=== PATIENT | female | born 1975 | race Caucasian/White ===

== ENCOUNTER 2017-03-25 18:21 | Emergency (ER) | payer OTHER ==
[2017-03-25] MEDS ORDERED: SODIUM CHLORIDE 0.9% 1,000 ML IV STA (18:43)
[2017-03-25] MEDS ORDERED: ACETAMINOPHEN TAB 500 MG TAB PO STA (18:43)
[2017-03-25] MEDS ORDERED: KETOROLAC 30 MG/ML 1 ML VIAL IVP STA ×2 (18:43→20:40)
[2017-03-25] MEDS ORDERED: ONDANSETRON 4 MG/2 ML VIAL IVP STA ×2 (18:43→20:00)
[2017-03-25] MEDS ORDERED: diphenhydrAMINE 50 MG/ML 1 ML VIAL IVP STA (18:43)
[2017-03-25] MEDS ORDERED: ORPHENADRINE 30 MG/ML 2 ML VIAL IVP STA (18:44)
[2017-03-25 18:56] LABS: Basophils % (A) 0 %; CHCM 32.2; Eosinophils % (A) 0 %; HCT 36.3 % (34.0-46.0); HDW 2.44; HGB 11.8 gm/dL (11.4-16.0); Luc # (Auto) 0.12; Luc % (Auto) 3; Lymphocytes # (A) 1.3 k/uL (1.0-4.8); Lymphocytes % (A) 31 %; MCH 31.3 pg (25.0-35.0); MCHC 32.4 g/dL (31.0-37.0); MCV 96.7 fL (80.0-100.0); Mean Platelet Volume 6.9; Monocytes # (A) 0.3 k/uL (0-1.0); Monocytes % (A) 6 %; Neutrophils # (A) 2.4 k/uL (1.3-7.7); Neutrophils % (A) 60 %; RBC 3.76 m/uL (3.80-5.40); RDW 12.3 % (11.5-15.5)
[2017-03-25 19:06] LABS: Anion Gap 9 mmol/L; Blood Urea Nitrogen 12 mg/dL (7-17); Calcium 8.9 mg/dL (8.4-10.2); Carbon Dioxide 26 mmol/L (22-30); Chloride 105 mmol/L (98-107); Glucose 94 mg/dL (74-99); Non-African American GFR(MDRD) >60 (>60 ml/min/1.73 sqM); Potassium 3.8 mmol/L (3.5-5.1); Sodium 140 mmol/L (137-145)
--- NOTE | 2017-03-25 19:12 | ED ---
Headache HPI - General Source: RN notes reviewed, old records reviewed Mode of arrival: EMS Limitations: no limitations <Ana Marmolejo - Last Filed: 03/25/17 20:06> <Eliseo Olivera - Last Filed: 03/25/17 20:58> <Bipin Mckeon - Last Filed: 04/05/17 23:02> - General Chief Complaint: Headache Stated Complaint: migraine Time Seen by Provider: 03/25/17 18:26 - History of Present Illness Initial Comments: This is a 41-year-old female presents emergency Department chief complaining of severe migraine-like headache for the past 2 days. She reports she's had history of migraines. She reports that this is the worst migraine ever had. Patient states that she had a root canal 3 to get days ago and that seems to when she noticed her migraine started. She denies any pain or swelling around the teeth or gums. She reports that she was started on azithromycin for dental procedure. Patient states she's had no fever or chills. She reports she also has some pain and stiffness in her neck. She states that she was seen in a different emergency department a few weeks ago for migraine-like headache. ( Ana Marmolejo) - Related Data Home Medications Medication Instructions Recorded Confirmed clonazePAM [KlonoPIN] 2 mg PO TID 09/03/14 03/25/17 Lurasidone HCl [Latuda] 60 mg PO W/SUPPER 03/16/16 03/25/17 Metoprolol Tartrate 25 mg PO BID 03/16/16 03/25/17 PARoxetine HCL [Paxil] 60 mg PO DAILY 03/16/16 03/25/17 Cyclobenzaprine [Flexeril] 10 mg PO BID PRN 03/25/17 03/25/17 Ranitidine HCl 150 mg PO BID 03/25/17 03/25/17 traZODone HCL 300 mg PO HS 03/25/17 03/25/17 Allergies Allergy/AdvReac Type Severity Reaction Status Date / Time glycopyrrolate [From Onelia] AdvReac PARANOIA Verified 03/25/17 18:58 metoclopramide HCl AdvReac PARANOIA Verified 03/25/17 18:58 [From Reglan] morphine AdvReac Chest Pain Verified 03/25/17 18:58 prochlorperazine edisylate AdvReac Nausea & Verified 03/25/17 18:58 [From Compazine] Vomiting prochlorperazine maleate AdvReac Nausea & Verified 03/25/17 18:58 [From Compazine] Vomiting Review of Systems ROS Other: All systems not noted in ROS Statement are negative. <Ana Marmolejo - Last Filed: 03/25/17 20:06> ROS Other: All systems not noted in ROS Statement are negative. <Eliseo Olivera - Last Filed: 03/25/17 20:58> ROS Other: All systems not noted in ROS Statement are negative. <Bipin Mckeon - Last Filed: 04/05/17 23:02> ROS Statement: Those systems with pertinent positive or pertinent negative responses have been documented in the HPI. Past Medical History Past Medical History: Fibromyalgia, GERD/Reflux, Osteoarthritis (OA), Supraventricular Tachycardia (SVT), Syncope Additional Past Medical History / Comment(s): PROTEIN S DEFICIENCY; STATES, HX "BLOOD CLOT IN COLON IN 1999." HYPOGLYCEMIA. GETS EDEMA IN FEET. HX KIDNEY STONES. HX OF ULCER. ABD PAIN RADIATING TO BACK, PELVIC PAIN. HX bulging disks with procedures; Anorexia Nervosa, HX MIGRAINES History of Any Multi-Drug Resistant Organisms: None Reported Past Surgical History: Cholecystectomy, Hysterectomy Additional Past Surgical History / Comment(s): LAPAROSCOPY. URETERAL STENTS D/ T KIDNEY STONES. NOW REMOVED, FREDI FUNDAPLICATION Past Anesthesia/Blood Transfusion Reactions: Motion Sickness, Postoperative Nausea & Vomiting (PONV) Additional Past Anesthesia/Blood Transfusion Reaction / Comment(s): REFUSES BLOOD PRODUCTS. Past Psychological History: Anxiety, Bipolar, Depression Smoking Status: Never smoker Past Alcohol Use History: None Reported Past Drug Use History: None Reported - Past Family History Father Family Medical History: Hyperlipidemia Additional Family Medical History / Comment(s): Mitral valve repair Mother Family Medical History: Cancer Additional Family Medical History / Comment(s): lupus <Ana Marmolejo - Last Filed: 03/25/17 20:06> General Exam Limitations: no limitations General appearance: alert, in no apparent distress Head exam: Present: atraumatic, normocephalic, normal inspection Eye exam: Present: normal appearance, PERRL, EOMI. Absent: scleral icterus, conjunctival injection, periorbital swelling ENT exam: Present: normal exam, mucous membranes moist Neck exam: Present: normal inspection. Absent: tenderness, meningismus, lymphadenopathy Respiratory exam: Present: normal lung sounds bilaterally. Absent: respiratory distress, wheezes, rales, rhonchi, stridor Cardiovascular Exam: Present: regular rate, normal rhythm, normal heart sounds. Absent: systolic murmur, diastolic murmur, rubs, gallop, clicks GI/Abdominal exam: Present: soft, normal bowel sounds. Absent: distended, tenderness, guarding, rebound, rigid Extremities exam: Present: normal inspection, full ROM, normal capillary refill. Absent: tenderness, pedal edema, joint swelling, calf tenderness Back exam: Present: normal inspection Neurological exam: Present: alert, oriented X3, CN II-XII intact Psychiatric exam: Present: normal affect, normal mood Skin exam: Present: warm, dry, intact, normal color. Absent: rash <Ana Marmolejo - Last Filed: 03/25/17 20:06> <Eliseo Olivera - Last Filed: 03/25/17 20:58> <Bipin Mckeon - Last Filed: 04/05/17 23:02> - General Exam Comments Initial Comments: 41-year-old female. No acute distress. (Ana Marmolejo) Course <Ana Marmolejo - Last Filed: 03/25/17 20:06> <Eliseo Olivera - Last Filed: 03/25/17 20:58> <Bipin Mckeon - Last Filed: 04/05/17 23:02> Vital Signs 03/25/17 03/25/17 18:25 22:49 Temperature 98.6 F 98.2 F Pulse Rate 75 84 Respiratory 20 18 Rate Blood Pressure 110/59 95/57 O2 Sat by Pulse 98 94 L Oximetry - Reevaluation(s) Reevaluation #1: 03/25/17 19:23 Patient was reevaluated. She reports that her headache did not diminished at all. She reports it feels still a 10 out of [address] was ordered. ( Ana Marmolejo) Reevaluation #2: 03/25/17 20:52 I did evaluate the patient patient CT is negative. She did get some improvement in her headache from a 10/10 to an 8/10. (Eliseo Olivera) Reevaluation #3: 03/25/17 20:58 The patient's care will be endorsed to Dr. Mckeon at our shift change. He'll make the final disposition. (Eliseo Olivera) Medical Decision Making - Lab Data Result diagrams: 03/25/17 18:30 03/25/17 18:30 <Ana Marmolejo - Last Filed: 03/25/17 20:06> - Lab Data Result diagrams: 03/25/17 18:30 03/25/17 18:30 <Eliseo Olivera - Last Filed: 03/25/17 20:58> - Lab Data Result diagrams: 03/25/17 18:30 03/25/17 18:30 <Bipin Mckeon - Last Filed: 04/05/17 23:02> - Medical Decision Making This is a 41-year-old female presents emergency Department chief complaining of severe migraine-like headache for the past 2 days. She reports she's had history of migraines. She reports that this is the worst migraine ever had. Patient states that she had a root canal 3 to get days ago and that seems to when she noticed her migraine started. Patient's dentition appears to be normal. Nose and swelling or bleeding noted. No neurological deficits noticed. Patient is given IV fluids, Toradol, Norflex, Decadron, Zofran and Benadryl. Patient was reevaluated after receiving these and states that her headache was not any better. CT brain with and without contrast is ordered. Patient case was discussed with Dr. Olivera. He will take the patient and approximately 8 PM. (Ana Marmolejo) The patient had improvement following medication and discharged with instructions to return should symptoms recur if there is any worsening. (Bipin Mckeon) - Lab Data Lab Results 03/25/17 03/25/17 Range/Units 18:30 18:30 WBC 4.0 (3.8-10.6) k/uL RBC 3.76 L (3.80-5.40) m/uL Hgb 11.8 (11.4-16.0) gm/dL Hct 36.3 (34.0-46.0) % MCV 96.7 (80.0-100.0) fL MCH 31.3 (25.0-35.0) pg MCHC 32.4 (31.0-37.0) g/dL RDW 12.3 (11.5-15.5) % Plt Count 189 (150-450) k/uL Neutrophils % 60 % Lymphocytes % 31 % Monocytes % 6 % Eosinophils % 0 % Basophils % 0 % Neutrophils # 2.4 (1.3-7.7) k/uL Lymphocytes # 1.3 (1.0-4.8) k/uL Monocytes # 0.3 (0-1.0) k/uL Eosinophils # 0.0 (0-0.7) k/uL Basophils # 0.0 (0-0.2) k/uL Sodium 140 (137-145) mmol/L Potassium 3.8 (3.5-5.1) mmol/L Chloride 105 (98-107) mmol/L Carbon Dioxide 26 (22-30) mmol/L Anion Gap 9 mmol/L BUN 12 (7-17) mg/dL Creatinine 0.80 (0.52-1.04) mg/dL Est GFR (MDRD) Af Amer >60 (>60 ml/min/1.73 sqM) Est GFR (MDRD) Non-Af >60 (>60 ml/min/1.73 sqM) Glucose 94 (74-99) mg/dL Calcium 8.9 (8.4-10.2) mg/dL Disposition <Ana Marmolejo - Last Filed: 03/25/17 20:06> <Eliseo Olivera - Last Filed: 03/25/17 20:58> <Bipin Mckeon - Last Filed: 04/05/17 23:02> Clinical Impression: Headache Disposition: HOME SELF-CARE Condition: Good Instructions: Acute Headache (ED) Referrals: Presley Ley MD [Primary Care Provider] - 1-2 days
[2017-03-25] MEDS ORDERED: RX INFO: IV CONTRAST WAS GIVEN 1 EACH MISC MISCELLANE PRN (19:24)
[2017-03-25] MEDS ORDERED: HYDROmorphone 1 MG/ML 1 ML SYRINGE IVP STA ×2 (19:51→20:40)
--- NOTE | 2017-03-25 20:18 | CT ---
EXAMINATION TYPE: CT brain without contrast DATE OF EXAM: 03/25/2017 COMPARISON: NONE HISTORY: Headache for [address] DLP: 1927.2 mGycm Automated Exposure Control for Dose Reduction was Utilized. TECHNIQUE: CT scan of the head is performed without IV contrast COMPARISON: June 04, 2016 FINDINGS: No acute hemorrhage or major vessel territorial infarct. There is no mass, mass effect, or midline shift. The ventricles and sulci are age-appropriate. The calvarium and paranasal sinuses are unremarkable. IMPRESSION: No acute intracranial abnormality is identified.
[2017-03-25] MEDS ORDERED: SODIUM CHLORIDE 0.9% 500 ML IV STA (20:40)
[2017-03-25] MEDS ORDERED: IPRATROPIUM-ALBUTEROL 3 ML NEB INHALATION STA (20:59)
[2017-03-25 22:50] VITALS: BP 95/57; PULSE 84; RESP 18; TEMP 98.2
== END 2017-03-25 23:09 | disposition home or self-care (01) ==
LOC: EC 18:21
DX: R51 Headache (principal); K21.9 Gastro-esophageal reflux disease without esophagitis; F41.9 Anxiety disorder, unspecified; F31.9 Bipolar disorder, unspecified; Z86.69 Personal history of other diseases of the nervous system and sense organs; Z88.5 Allergy status to narcotic agent; Z88.8 Allergy status to other drugs, medicaments and biological substances; Z79.899 Other long term (current) drug therapy
CPT/HCPCS: 99285 ×2; 96374 ×2; 96375 ×5; 96376 ×4; 96361 ×5; 36415; 80048; 85025; 70470; J1200; J2360; J2405; J1885; J1170; Q9967

== ENCOUNTER 2018-01-24 08:24 | Day surgery (SDC) | payer OTHER ==
[2018-01-19 12:09] VITALS: BMI 22.3
[~2018-01-24 08:24] MED LIST: LACTATED RINGERS 1,000 ML IV SCH; LIDOCAINE 1% 20 ML VIAL (10MG/ML) FOR IV START INTRADERMA PRN; MIDAZOLAM 2 MG/2 ML VIAL IV PRN
[2018-01-24 09:55] VITALS: RESP 16; TEMP 98
[2018-01-24 09:56] LABS: Glucose,Whole Blood 91 mg/dL (75-99)
[2018-01-24] MEDS ORDERED: PROPOFOL 10 MG/ML 20 ML VIAL IV ONE (10:04)
--- NOTE | 2018-01-24 10:09 | P.GSHP ---
History of Present Illness H&P Date: 01/24/18 Chief Complaint: Peptic ulcer disease This is a 42-year-old female who presents today for EGD. She's had issues with epigastric abdominal pain. She's had previous history of peptic ulcer disease and GERD. - Constitutional Constitutional: Reports as per HPI Past Medical History Past Medical History: Fibromyalgia, GERD/Reflux, Osteoarthritis (OA), Supraventricular Tachycardia (SVT), Syncope Additional Past Medical History / Comment(s): PROTEIN S DEFICIENCY; STATES, HX "BLOOD CLOT IN COLON IN 1999." HYPOGLYCEMIA. EDEMA IN FEET. HX KIDNEY STONES & ULCER. HX bulging disks with procedures; Anorexia Nervosa, HX MIGRAINES, frequent epigastric pain recently, especially after eating History of Any Multi-Drug Resistant Organisms: None Reported Past Surgical History: Cholecystectomy, Hysterectomy Additional Past Surgical History / Comment(s): LAPAROSCOPY, URETERAL STENTS D/T KIDNEY STONES. NOW REMOVED, FREDI FUNDOPLICATION, pain procedures Past Anesthesia/Blood Transfusion Reactions: Motion Sickness, Postoperative Nausea & Vomiting (PONV) Additional Past Anesthesia/Blood Transfusion Reaction / Comment(s): REFUSES BLOOD PRODUCTS. Smoking Status: Never smoker - Past Family History Father Family Medical History: Hyperlipidemia Additional Family Medical History / Comment(s): Mitral valve repair Mother Family Medical History: Cancer Additional Family Medical History / Comment(s): lupus Medications and Allergies Home Medications Medication Instructions Recorded Confirmed Type clonazePAM [KlonoPIN] 2 mg PO TID 09/03/14 01/24/18 History Lurasidone HCl [Latuda] 60 mg PO W/SUPPER 03/16/16 01/24/18 History Metoprolol Tartrate 25 mg PO BID 03/16/16 01/24/18 History PARoxetine HCL [Paxil] 60 mg PO DAILY 03/16/16 01/24/18 History Ranitidine HCl 150 mg PO BID 03/25/17 01/24/18 History traZODone HCL 300 mg PO HS 03/25/17 01/24/18 History Allergies Allergy/AdvReac Type Severity Reaction Status Date / Time glycopyrrolate [From Robinul] AdvReac PARANOIA Verified 01/24/18 09:40 metoclopramide HCl AdvReac PARANOIA Verified 01/24/18 09:40 [From Reglan] morphine AdvReac Chest Pain Verified 01/24/18 09:40 prochlorperazine edisylate AdvReac Nausea & Verified 01/24/18 09:40 [From Compazine] Vomiting prochlorperazine maleate AdvReac Nausea & Verified 01/24/18 09:40 [From Compazine] Vomiting Surgical - Exam Vital Signs Temp Pulse Resp BP Pulse Ox 98.0 F 74 16 98/49 97 01/24/18 09:45 01/24/18 09:45 01/24/18 09:45 01/24/18 09:45 01/24/18 09:45 - General well developed, no distress - Eyes PERRL - ENT normal pinna - Neck no masses - Respiratory normal expansion - Cardiovascular Rhythm: regular - Abdomen Abdomen: soft, non tender Assessment and Plan Assessment: Epigastric pain History of GERD and peptic ulcer disease We'll perform EGD.
--- NOTE | 2018-01-24 10:15 | P.OP ---
Date of Procedure: 01/24/18 Preoperative Diagnosis: Epigastric pain Gastritis Postoperative Diagnosis: Mild antral gastritis Procedure(s) Performed: EGD Anesthesia: MAC Surgeon: Hesham Shine Pathology: other (Antrum) Condition: stable Disposition: PACU Description of Procedure: The patient's placed on the endoscopy table in the lateral position. She received IV sedation. The gastroscope placed oropharynx and passed in the esophagus into the stomach. Scope was then placed through the pylorus. First and second portion duodenum appeared normal. Scope was then brought back the antrum and this was minimal inflamed. A biopsy the antrum was performed. The scope was then retroflexed the patient a previous fundal plication. This appeared to be in the appropriate position. There is no evidence of a hiatal hernia. The GE junction was at 40 cm. The distal esophagus appeared normal. The proximal esophagus appeared normal. The scope was withdrawn for patient.
[2018-01-24 10:46] VITALS: BP 94/61; PULSE 61
== END 2018-01-24 11:19 | disposition home or self-care (01) ==
LOC: ORWHC2ENDO 08:24
PROVIDERS: ATTEND Surgery
DX: K29.50 Unspecified chronic gastritis without bleeding (principal); K27.9 Peptic ulcer, site unspecified, unspecified as acute or chronic, without hemorrhage or perforation; K21.9 Gastro-esophageal reflux disease without esophagitis; M19.90 Unspecified osteoarthritis, unspecified site; I47.1 Supraventricular tachycardia; F50.00 Anorexia nervosa, unspecified; Z87.442 Personal history of urinary calculi; M79.7 Fibromyalgia; Z79.899 Other long term (current) drug therapy; Z88.5 Allergy status to narcotic agent; Z88.8 Allergy status to other drugs, medicaments and biological substances
CPT/HCPCS: 88305; 43239; J2704

== ENCOUNTER 2018-08-11 19:33 | Emergency (ER) | payer OTHER ==
[2018-08-11] MEDS ORDERED: SODIUM CHLORIDE 0.9% 1,000 ML IV STA (20:46)
[2018-08-11] MEDS ORDERED: ONDANSETRON 4 MG/2 ML VIAL IVP STA (20:46)
[2018-08-11] MEDS ORDERED: HYDROmorphone 1 MG/ML 1 ML SYRINGE IVP STA (20:46)
--- NOTE | 2018-08-11 20:57 | ED ---
Abdominal Pain HPI - General Chief Complaint: Abdominal Pain Stated Complaint: Abd Pain Time Seen by Provider: 08/11/18 19:36 Source: patient, EMS Mode of arrival: EMS Limitations: no limitations - History of Present Illness Initial Comments: 42-year-old female patient presents to the emergency department today for evaluation of midepigastric abdominal pain that radiates through to her back. Patient states that she has been having episodes of similar type pain since having her gallbladder removed 2 years ago. Patient states that the pain has been worse and more persistent recently. Patient states the pain has been constant over the last 2 days. Patient states that she has been nauseated and has not vomited. States that the pain does worsen after eating. She states the pain radiates through to her back and up into her chest. She denies any shortness of breath or sweats with this. States that she did have one episode of diarrhea last evening but she did take stool softeners she has irritable bowel syndrome. States that she has been running low-grade fevers of 99.5-100.5 F. Patient denies any recent rash, shortness breath, chest pain, numbness, tingling, dizziness, weakness, hematuria, dysuria, urinary urgency, urinary frequency, headache, visual changes, or any other complaints. - Related Data Home Medications Medication Instructions Recorded Confirmed clonazePAM [KlonoPIN] 2 mg PO TID 09/03/14 01/24/18 Lurasidone HCl [Latuda] 60 mg PO W/SUPPER 03/16/16 01/24/18 Metoprolol Tartrate 25 mg PO BID 03/16/16 01/24/18 PARoxetine HCL [Paxil] 60 mg PO DAILY 03/16/16 01/24/18 Ranitidine HCl 150 mg PO BID 03/25/17 01/24/18 traZODone HCL 300 mg PO HS 03/25/17 01/24/18 Previous Rx's Medication Instructions Recorded Ondansetron [Zofran ODT] 4 mg PO Q8HR PRN #10 tab 08/11/18 Allergies Allergy/AdvReac Type Severity Reaction Status Date / Time glycopyrrolate [From Onelia] AdvReac PARANOIA Verified 08/11/18 19:47 metoclopramide HCl AdvReac PARANOIA Verified 08/11/18 19:47 [From Reglan] morphine AdvReac Chest Pain Verified 08/11/18 19:47 prochlorperazine edisylate AdvReac Nausea & Verified 08/11/18 19:47 [From Compazine] Vomiting prochlorperazine maleate AdvReac Nausea & Verified 08/11/18 19:47 [From Compazine] Vomiting Review of Systems ROS Statement: Those systems with pertinent positive or pertinent negative responses have been documented in the HPI. ROS Other: All systems not noted in ROS Statement are negative. Past Medical History Past Medical History: Fibromyalgia, GERD/Reflux, Osteoarthritis (OA), Supraventricular Tachycardia (SVT), Syncope Additional Past Medical History / Comment(s): PROTEIN S DEFICIENCY; "BLOOD CLOT IN COLON IN 1999." HYPOGLYCEMIA. EDEMA IN FEET. HX KIDNEY STONES & ULCER. HX bulging disks with procedures; Anorexia Nervosa, HX MIGRAINES, History of Any Multi-Drug Resistant Organisms: None Reported Past Surgical History: Cholecystectomy, Hysterectomy Additional Past Surgical History / Comment(s): LAPAROSCOPY, URETERAL STENTS D/T KIDNEY STONES. NOW REMOVED, FREDI FUNDOPLICATION, pain procedures, Past Anesthesia/Blood Transfusion Reactions: Motion Sickness, Postoperative Nausea & Vomiting (PONV) Additional Past Anesthesia/Blood Transfusion Reaction / Comment(s): REFUSES BLOOD PRODUCTS. Past Psychological History: Anxiety, Bipolar, Depression Smoking Status: Never smoker Past Alcohol Use History: None Reported Past Drug Use History: None Reported - Past Family History Father Family Medical History: Hyperlipidemia Additional Family Medical History / Comment(s): Mitral valve repair Mother Family Medical History: Cancer Additional Family Medical History / Comment(s): lupus General Exam Limitations: no limitations General appearance: alert, in no apparent distress, other (Physical well- developed, well-nourished adult female patient in no acute distress. Vital signs upon presentation are temperature 98.3F, pulse 85, respirations 18, blood pressure 120/69, pulse ox 96% on room air.) Eye exam: Present: normal appearance, PERRL, EOMI. Absent: scleral icterus, conjunctival injection, periorbital swelling ENT exam: Present: normal exam, normal oropharynx, mucous membranes moist Respiratory exam: Present: normal lung sounds bilaterally. Absent: respiratory distress, wheezes, rales, rhonchi, stridor Cardiovascular Exam: Present: regular rate, normal rhythm, normal heart sounds. Absent: systolic murmur, diastolic murmur, rubs, gallop, clicks GI/Abdominal exam: Present: soft, tenderness (Midepigastric, right upper quadrant, right lower quadrant tenderness.), normal bowel sounds. Absent: distended, guarding, rebound, rigid Neurological exam: Present: alert, oriented X3, CN II-XII intact Psychiatric exam: Present: normal affect, normal mood Skin exam: Present: warm, dry, intact, normal color. Absent: rash Course Vital Signs 08/11/18 08/11/18 08/11/18 19:42 21:09 21:21 Temperature 98.3 F Pulse Rate 85 81 80 Respiratory 18 18 17 Rate Blood Pressure 120/69 101/60 114/71 O2 Sat by Pulse 96 98 98 Oximetry 08/11/18 22:14 Temperature 98.1 F Pulse Rate 82 Respiratory 18 Rate Blood Pressure 104/60 O2 Sat by Pulse 95 Oximetry Medical Decision Making - Medical Decision Making 42-year-old female patient presents to the emergency department today for evaluation of midepigastric abdominal pain. Patient reported having similar pain intermittently over the last 2 years. It started when her gallbladder was taken out. Physical examination did reveal some mild midepigastric tenderness. No guarding or rebound. Labs reviewed and were unremarkable. Patient was given pain medication, she does report mild improvement of symptoms. She'll be discharged home with prescription for Zofran. She is instructed to follow-up with her primary care physician and her surgeon for further evaluation. Return parameters discussed in detail. She verbalizes understanding and agrees with this plan. - Lab Data Result diagrams: 08/11/18 19:56 08/11/18 19:56 Lab Results 08/11/18 08/11/18 08/11/18 Range/Units 19:54 19:56 19:56 WBC 4.9 (3.8-10.6) k/uL RBC 4.01 (3.80-5.40) m/uL Hgb 12.4 (11.4-16.0) gm/dL Hct 38.7 (34.0-46.0) % MCV 96.5 (80.0-100.0) fL MCH 31.0 (25.0-35.0) pg MCHC 32.1 (31.0-37.0) g/dL RDW 12.8 (11.5-15.5) % Plt Count 188 (150-450) k/uL Neutrophils % 55 % Lymphocytes % 28 % Monocytes % 10 % Eosinophils % 4 % Basophils % 1 % Neutrophils # 2.7 (1.3-7.7) k/uL Lymphocytes # 1.4 (1.0-4.8) k/uL Monocytes # 0.5 (0-1.0) k/uL Eosinophils # 0.2 (0-0.7) k/uL Basophils # 0.0 (0-0.2) k/uL Sodium 138 (137-145) mmol/L Potassium 4.4 (3.5-5.1) mmol/L Chloride 103 (98-107) mmol/L Carbon Dioxide 28 (22-30) mmol/L Anion Gap 7 mmol/L BUN 17 (7-17) mg/dL Creatinine 0.92 (0.52-1.04) mg/dL Est GFR (CKD-EPI)AfAm 90 (>60 ml/min/1.73 sqM) Est GFR (CKD-EPI)NonAf 78 (>60 ml/min/1.73 sqM) Glucose 125 H (74-99) mg/dL Calcium 9.3 (8.4-10.2) mg/dL Total Bilirubin 0.3 (0.2-1.3) mg/dL AST 46 H (14-36) U/L ALT 80 H (9-52) U/L Alkaline Phosphatase 47 (38-126) U/L Troponin I (0.000-0.034) ng/mL Total Protein 7.0 (6.3-8.2) g/dL Albumin 3.8 (3.5-5.0) g/dL Amylase 63 (30-110) U/L Lipase 137 (23-300) U/L Urine Color Light Yellow Urine Appearance Turbid H (Clear) Urine pH 5.0 (5.0-8.0) Ur Specific [place] 1.007 (1.001-1.035) Urine Protein Negative (Negative) Urine Glucose (UA) Negative (Negative) Urine Ketones Negative (Negative) Urine Blood Negative (Negative) Urine Nitrite Negative (Negative) Urine Bilirubin Negative (Negative) Urine Urobilinogen <2.0 (<2.0) mg/dL Ur Leukocyte Esterase Negative (Negative) Urine RBC <1 (0-5) /hpf Urine WBC 3 (0-5) /hpf Ur Squamous Epith Cells 1 (0-4) /hpf Amorphous Sediment Rare H (None) /hpf Urine Bacteria Many H (None) /hpf 08/11/18 Range/Units 19:56 WBC (3.8-10.6) k/uL RBC (3.80-5.40) m/uL Hgb (11.4-16.0) gm/dL Hct (34.0-46.0) % MCV (80.0-100.0) fL MCH (25.0-35.0) pg MCHC (31.0-37.0) g/dL RDW (11.5-15.5) % Plt Count (150-450) k/uL Neutrophils % % Lymphocytes % % Monocytes % % Eosinophils % % Basophils % % Neutrophils # (1.3-7.7) k/uL Lymphocytes # (1.0-4.8) k/uL Monocytes # (0-1.0) k/uL Eosinophils # (0-0.7) k/uL Basophils # (0-0.2) k/uL Sodium (137-145) mmol/L Potassium (3.5-5.1) mmol/L Chloride (98-107) mmol/L Carbon Dioxide (22-30) mmol/L Anion Gap mmol/L BUN (7-17) mg/dL Creatinine (0.52-1.04) mg/dL Est GFR (CKD-EPI)AfAm (>60 ml/min/1.73 sqM) Est GFR (CKD-EPI)NonAf (>60 ml/min/1.73 sqM) Glucose (74-99) mg/dL Calcium (8.4-10.2) mg/dL Total Bilirubin (0.2-1.3) mg/dL AST (14-36) U/L ALT (9-52) U/L Alkaline Phosphatase (38-126) U/L Troponin I <0.012 (0.000-0.034) ng/mL Total Protein (6.3-8.2) g/dL Albumin (3.5-5.0) g/dL Amylase (30-110) U/L Lipase (23-300) U/L Urine Color Urine Appearance (Clear) Urine pH (5.0-8.0) Ur Specific [place] (1.001-1.035) Urine Protein (Negative) Urine Glucose (UA) (Negative) Urine Ketones (Negative) Urine Blood (Negative) Urine Nitrite (Negative) Urine Bilirubin (Negative) Urine Urobilinogen (<2.0) mg/dL Ur Leukocyte Esterase (Negative) Urine RBC (0-5) /hpf Urine WBC (0-5) /hpf Ur Squamous Epith Cells (0-4) /hpf Amorphous Sediment (None) /hpf Urine Bacteria (None) /hpf - EKG Data -: EKG Interpreted by Me EKG Comments: EKG obtained at 2009 shows normal sinus rhythm with a ventricular rate of 83, CT interval 134, QRS duration 80, QT 390, QTc 458. No evidence of ST elevation or depression. Disposition Clinical Impression: Abdominal pain Disposition: HOME SELF-CARE Condition: Good Instructions (If sedation given, give patient instructions): Abdominal Pain (ED ) Additional Instructions: Increase fluids. Take medications as directed. Follow-up through primary care physician for further evaluation as soon as possible. Return to the emergency department for any new, worsening, or concerning symptoms. Prescriptions: Ondansetron [Zofran ODT] 4 mg PO Q8HR PRN #10 tab PRN Reason: Nausea Is patient prescribed a controlled substance at d/c from ED?: No Referrals: Presley Ley MD [Primary Care Provider] - 1-2 days Time of Disposition: 22:27
[2018-08-11 20:59] LABS: Basophils % (A) 1 %; Eosinophils # (A) 0.2 k/uL (0-0.7); Eosinophils % (A) 4 %; HCT 38.7 % (34.0-46.0); HGB 12.4 gm/dL (11.4-16.0); Lymphocytes # (A) 1.4 k/uL (1.0-4.8); Lymphocytes % (A) 28 %; MCHC 32.1 g/dL (31.0-37.0); MCV 96.5 fL (80.0-100.0); Mean Platelet Volume 7.9; Monocytes # (A) 0.5 k/uL (0-1.0); Monocytes % (A) 10 %; Neutrophils # (A) 2.7 k/uL (1.3-7.7); Neutrophils % (A) 55 %; Platelet Count 188 k/uL (150-450); RBC 4.01 m/uL (3.80-5.40); RDW 12.8 % (11.5-15.5); WBC 4.9 k/uL (3.8-10.6)
[2018-08-11 21:09] LABS: Albumin 3.8 g/dL (3.5-5.0); Calcium 9.3 mg/dL (8.4-10.2); Potassium 4.4 mmol/L (3.5-5.1); Total Bilirubin 0.3 mg/dL (0.2-1.3)
[2018-08-11 22:02] LABS: Amorphous Sediment,Urine Rare /hpf; Appearance,Urine Turbid (Clear); Bacteria,Urine Many /hpf; Bilirubin,Urine Negative (Negative); Blood,Urine Negative (Negative); Color,Urine Light Yellow; Glucose,Urine (UA) Negative (Negative); Ketones,Urine Negative (Negative); Leukocyte Esterase,Urine Negative (Negative); Nitrite,Urine Negative (Negative); Protein,Urine Negative (Negative); RBC,Urine <1 /hpf (0-5); Specific Gravity,Urine 1.007 (1.001-1.035); Squamous Epithelial Cell,Urine 1 /hpf (0-4); Urobilinogen,Urine <2.0 mg/dL (<2.0); WBC,Urine 3 /hpf (0-5)
[2018-08-11 22:15] VITALS: BP 104/60; PULSE 82; RESP 18; TEMP 98.1
[2018-08-11] MEDS ORDERED: HYDROmorphone 0.5 MG/0.5 ML SYRINGE IVP STA (22:26)
[2018-08-11] MEDS ORDERED: KETOROLAC 30 MG/ML 1 ML VIAL IVP STA (22:26)
[2018-08-11] MEDS ORDERED: ONDANSETRON 4 MG ODT STARTER PACK 2 TAB BTL PO STA (22:31)
[2018-08-11] MEDS ORDERED: ACET/COD 300 MG/30 MG STARTER PACK 6 TAB BTL PO STA (22:31)
== END 2018-08-11 22:58 | disposition home or self-care (01) ==
LOC: EC 19:33
DX: R10.13 Epigastric pain (principal); K21.9 Gastro-esophageal reflux disease without esophagitis; F31.9 Bipolar disorder, unspecified; F41.9 Anxiety disorder, unspecified; Z79.899 Other long term (current) drug therapy; Z88.5 Allergy status to narcotic agent; Z88.8 Allergy status to other drugs, medicaments and biological substances; Z90.49 Acquired absence of other specified parts of digestive tract
CPT/HCPCS: 36415; 93005; 80053; 82150; 83690; 84484; 85025; 81001; 99285; 96374; 96375 ×2; 96376; 96361; J2405; J1885; J1170 ×2; S0119

== ENCOUNTER 2018-08-15 20:01 | Observation (INO) | payer OTHER ==
[2018-08-15] MEDS ORDERED: SODIUM CHLORIDE 0.9% 1,000 ML IV ONE (21:21)
[2018-08-15] MEDS ORDERED: HYDROmorphone 0.5 MG/0.5 ML SYRINGE IVP STA (21:21)
[2018-08-15] MEDS ORDERED: ONDANSETRON 4 MG/2 ML VIAL IVP STA (21:21)
--- NOTE | 2018-08-15 21:25 | ED ---
Abdominal Pain HPI - General Chief Complaint: Abdominal Pain Stated Complaint: Abd pain Time Seen by Provider: 08/15/18 21:07 Source: patient, family Mode of arrival: ambulatory Limitations: no limitations - History of Present Illness Initial Comments: This is a 43-year-old female to history of cholecystectomy and Francisco fundoplication who presents emergency department for generalized abdominal discomfort. She states that it started approximately 3-4 days ago. She states it started more epigastric and right upper quadrant and has now generalized to the entire abdomen. She states that it seems to concentrate more now in the lower abdomen and the right lower area. She states that she does have associated nausea and vomiting. She hasn't taken Motrin, Tylenol, and Zofran at home without relief. She was seen here in the emergency department with a negative workup and was sent home. She is follow up with her primary doctor who ordered an ultrasound to evaluate for choledocholithiasis. She also saw Dr. Soni yesterday who agreed with the workup. She called Dr. Soni today because her pain was worsening and he directed her to the emergency department for evaluation. She states that she also has not had a bowel movement in almost a week which is typical for her. She has tried laxatives without any relief. She describes the pain as constant however seems to wax and wane in intensity. She states it has been on relieving. She denies any other acute complaints. - Related Data Home Medications Medication Instructions Recorded Confirmed clonazePAM [KlonoPIN] 2 mg PO TID 09/03/14 08/15/18 Metoprolol Tartrate 25 mg PO BID 03/16/16 08/15/18 PARoxetine HCL [Paxil] 60 mg PO DAILY 03/16/16 08/15/18 traZODone HCL 300 mg PO HS 03/25/17 08/15/18 Cyclobenzaprine [Flexeril] 5 mg PO TID PRN 08/15/18 08/15/18 Lurasidone [Latuda] 80 mg PO DAILY 08/15/18 08/15/18 Omeprazole 40 mg PO DAILY 08/15/18 08/15/18 Previous Rx's Medication Instructions Recorded Ondansetron [Zofran ODT] 4 mg PO Q8HR PRN #10 tab 08/11/18 Allergies Allergy/AdvReac Type Severity Reaction Status Date / Time glycopyrrolate [From Torresinul] AdvReac PARANOIA Verified 08/15/18 22:26 metoclopramide HCl AdvReac PARANOIA Verified 08/15/18 22:26 [From Reglan] morphine AdvReac Chest Pain Verified 08/15/18 22:26 prochlorperazine edisylate AdvReac Nausea & Verified 08/15/18 22:26 [From Compazine] Vomiting prochlorperazine maleate AdvReac Nausea & Verified 08/15/18 22:26 [From Compazine] Vomiting Review of Systems ROS Statement: Those systems with pertinent positive or pertinent negative responses have been documented in the HPI. ROS Other: All systems not noted in ROS Statement are negative. Past Medical History Past Medical History: Fibromyalgia, GERD/Reflux, Osteoarthritis (OA), Supraventricular Tachycardia (SVT), Syncope Additional Past Medical History / Comment(s): PROTEIN S DEFICIENCY; "BLOOD CLOT IN COLON IN 1999." HYPOGLYCEMIA. EDEMA IN FEET. HX KIDNEY STONES & ULCER. HX bulging disks with procedures; Anorexia Nervosa, HX MIGRAINES, History of Any Multi-Drug Resistant Organisms: None Reported Past Surgical History: Cholecystectomy, Hysterectomy Additional Past Surgical History / Comment(s): LAPAROSCOPY, URETERAL STENTS D/T KIDNEY STONES. NOW REMOVED, FRANCISCO FUNDOPLICATION, pain procedures, Past Anesthesia/Blood Transfusion Reactions: Motion Sickness, Postoperative Nausea & Vomiting (PONV) Additional Past Anesthesia/Blood Transfusion Reaction / Comment(s): REFUSES BLOOD PRODUCTS. Past Psychological History: Anxiety, Bipolar, Depression Smoking Status: Never smoker Past Alcohol Use History: None Reported Past Drug Use History: None Reported - Past Family History Father Family Medical History: Hyperlipidemia Additional Family Medical History / Comment(s): Mitral valve repair Mother Family Medical History: Cancer Additional Family Medical History / Comment(s): lupus General Exam - General Exam Comments Initial Comments: Constitutional: Awake alert appears uncomfortable Head: Normocephalic atraumatic Eyes: no conjunctival injection No scleral icterus EOMI Neck: No JVD Supple Heart: Regular rate rhythm normal S1-S2 no murmurs Lungs: Clear to auscultation bilaterally No wheezing No rales Abdomen: Soft nondistended patient is generalized tenderness however reports that the pain seems to be worse in the lower quadrants. She also has some tenderness in the right upper quadrant. No rebound or guarding are present, bowel sounds are normal. Extremities: Non edematous DP pulses intact Radial pulses intact Neuro: A&Ox3 No focal neurologic deficits Psych: Appropriate mood and affect Limitations: no limitations Course Vital Signs 08/15/18 20:07 Temperature 98.4 F Pulse Rate 88 Respiratory 18 Rate Blood Pressure 132/87 O2 Sat by Pulse 96 Oximetry Medical Decision Making - Medical Decision Making Is a 43-year-old female who presents emergency department for abdominal pain. The patient had an ultrasound performed that did not show any evidence for choledocholithiasis. She did have some mild transaminitis however nothing severe. Her abdominal pain persisted despite Dilaudid, Zofran, Toradol, and Bentyl. CT of the abdomen did show some air-fluid levels throughout the large intestine and findings consistent with constipation. I discussed these results with Dr. Traore and stated the patient was still having significant discomfort so he recommended observation so that Dr. Soni could see the patient in the morning. We discussed an enema and the patient was agreeable to this as well. She states that she has attempted the p.m. multiple times this evening however has not been able to urinate and thus I will order a straight cath for urinalysis. Patient and family were updated the plan and agree. All questions were answered. - Lab Data Result diagrams: 08/15/18 21:52 08/15/18 21:52 Lab Results 08/15/18 08/15/18 08/15/18 Range/Units 21:52 21:52 23:00 WBC 7.7 (3.8-10.6) k/uL RBC 4.43 (3.80-5.40) m/uL Hgb 13.4 (11.4-16.0) gm/dL Hct 42.1 (34.0-46.0) % MCV 95.0 (80.0-100.0) fL MCH 30.3 (25.0-35.0) pg MCHC 31.9 (31.0-37.0) g/dL RDW 12.5 (11.5-15.5) % Plt Count 182 (150-450) k/uL Neutrophils % 74 % Lymphocytes % 16 % Monocytes % 7 % Eosinophils % 2 % Basophils % 0 % Neutrophils # 5.6 (1.3-7.7) k/uL Lymphocytes # 1.2 (1.0-4.8) k/uL Monocytes # 0.5 (0-1.0) k/uL Eosinophils # 0.2 (0-0.7) k/uL Basophils # 0.0 (0-0.2) k/uL PT 10.2 (9.0-12.0) sec INR 0.9 (<1.2) APTT 21.3 L (22.0-30.0) sec Sodium 140 (137-145) mmol/L Potassium 4.6 (3.5-5.1) mmol/L Chloride 105 (98-107) mmol/L Carbon Dioxide 27 (22-30) mmol/L Anion Gap 8 mmol/L BUN 17 (7-17) mg/dL Creatinine 0.87 (0.52-1.04) mg/dL Est GFR (CKD-EPI)AfAm >90 (>60 ml/min/1.73 sqM) Est GFR (CKD-EPI)NonAf 83 (>60 ml/min/1.73 sqM) Glucose 106 H (74-99) mg/dL Calcium 9.7 (8.4-10.2) mg/dL Magnesium 2.1 (1.6-2.3) mg/dL Total Bilirubin 0.4 (0.2-1.3) mg/dL AST 66 H (14-36) U/L ALT 142 H (9-52) U/L Alkaline Phosphatase 80 (38-126) U/L Total Protein 7.3 (6.3-8.2) g/dL Albumin 3.9 (3.5-5.0) g/dL Amylase 116 H (30-110) U/L Lipase 155 (23-300) U/L Disposition Clinical Impression: Intractable abdominal pain, Constipation Disposition: ADMITTED IP TO THIS [facility] Condition: Stable Referrals: Presley Ley MD [Primary Care Provider] - 1-2 days
[2018-08-15 22:09] LABS: Basophils % (A) 0 %; Eosinophils # (A) 0.2 k/uL (0-0.7); Eosinophils % (A) 2 %; HCT 42.1 % (34.0-46.0); HGB 13.4 gm/dL (11.4-16.0); Lymphocytes # (A) 1.2 k/uL (1.0-4.8); Lymphocytes % (A) 16 %; MCH 30.3 pg (25.0-35.0); MCHC 31.9 g/dL (31.0-37.0); Mean Platelet Volume 7.7; Monocytes # (A) 0.5 k/uL (0-1.0); Monocytes % (A) 7 %; Neutrophils # (A) 5.6 k/uL (1.3-7.7); Neutrophils % (A) 74 %; Platelet Count 182 k/uL (150-450); RBC 4.43 m/uL (3.80-5.40); RDW 12.5 % (11.5-15.5); WBC 7.7 k/uL (3.8-10.6)
[2018-08-15 22:21] LABS: ALT 142 U/L (9-52); AST 66 U/L (14-36); Albumin 3.9 g/dL (3.5-5.0); Alkaline Phosphatase 80 U/L (38-126); Amylase 116 U/L (30-110); Anion Gap 8 mmol/L; Blood Urea Nitrogen 17 mg/dL (7-17); Calcium 9.7 mg/dL (8.4-10.2); Carbon Dioxide 27 mmol/L (22-30); Chloride 105 mmol/L (98-107); Glucose 106 mg/dL (74-99); Lipase 155 U/L (23-300); Magnesium 2.1 mg/dL (1.6-2.3); Potassium 4.6 mmol/L (3.5-5.1); Sodium 140 mmol/L (137-145); Total Bilirubin 0.4 mg/dL (0.2-1.3); Total Protein 7.3 g/dL (6.3-8.2)
--- NOTE | 2018-08-15 22:40 | US ---
EXAM: US Abdomen Limited, Right Upper Quadrant CLINICAL HISTORY: Reason: RUQ Pain, eval for choledocholithiasis TECHNIQUE: Real-time ultrasound of the right upper quadrant with image documentation. COMPARISON: CT 06/23/2015 - prior report not available FINDINGS: Liver: Liver is unremarkable. No focal hepatic abnormalities. Gallbladder: Gallbladder surgically absent. Common bile duct: Common bile duct is nondilated measuring 6.5 mm. Pancreas: Pancreas is unremarkable as visualized, although pancreatic tail obscured by overlying bowel. Right kidney: Right kidney is of normal size and echotexture. No hydronephrosis. IMPRESSION: Unremarkable right upper quadrant ultrasound status post previous cholecystectomy.
[2018-08-15] MEDS ORDERED: DICYCLOMINE 10 MG/ML 2 ML AMP IM STA (23:24)
[2018-08-15] MEDS ORDERED: KETOROLAC 30 MG/ML 1 ML VIAL IVP STA (23:24)
[2018-08-15 23:40] LABS: INR 0.9 (<1.2); Prothrombin Time 10.2 sec (9.0-12.0)
[2018-08-15 23:41] LABS: Partial Thromboplastin Time 21.3 sec (22.0-30.0)
--- NOTE | 2018-08-15 23:41 | CT ---
EXAM: CT Abdomen and Pelvis With Intravenous Contrast CLINICAL HISTORY: Reason: R sided abdominal pain TECHNIQUE: Axial computed tomography images of the abdomen and pelvis with intravenous contrast. CTDI is 12.7 mGy and DLP is 580 mGy-cm. This CT exam was performed using one or more of the following dose reduction techniques: automated exposure control, adjustment of the mA and/or kV according to patient size, and/or use of iterative reconstruction technique. COMPARISON: Right upper quadrant Ultrasound 08/15/2018. CT abdomen-pelvis 06/23/2015 - prior report not available FINDINGS: Lung bases: Imaged lung bases are clear of focal infiltrates. Minimal right base subsegmental atelectasis or scarring. ABDOMEN: Liver: Liver is unremarkable. Gallbladder and bile ducts: Gallbladder not identified compatible with previous cholecystectomy. No significant biliary dilatation. Pancreas: Pancreas is unremarkable. Spleen: Spleen is unremarkable. Adrenals: No adrenal masses. Kidneys and ureters: Small approximately 3 mm nonobstructing right lower pole renal calculus. No evidence of hydronephrosis. No obstructing ureteral calculi. Stomach and bowel: Post surgical changes about region of GE junction. No evidence of bowel obstruction or pneumoperitoneum. Mild gaseous and fluid distention of colon with scattered colonic fluid levels which are nonspecific and suggest diarrheal state. PELVIS: Appendix: No findings to suggest acute appendicitis. Bladder: Urinary bladder is unremarkable. No bladder calculi. Reproductive: Status post hysterectomy. ABDOMEN and PELVIS: Intraperitoneal space: See above. Bones/joints: No acute bony abnormalities. Soft tissues: Minimal fat-containing umbilical hernia. Vasculature: No abdominal aortic aneurysm. Lymph nodes: No evidence of lymphadenopathy. IMPRESSION: Mild gaseous and fluid distention of colon with scattered colonic fluid levels which are nonspecific and suggest diarrheal state. No evidence of bowel obstruction or pneumoperitoneum. Status post cholecystectomy. Postsurgical changes about region of GE junction. Small nonobstructing right renal calculus.
[2018-08-16] MEDS ORDERED: ACETAMINOPHEN TAB 325 MG TAB PO PRN (00:14)
[2018-08-16] MEDS ORDERED: NALOXONE 0.4 MG/ML 1 ML VIAL IV PRN (00:14)
[2018-08-16] MEDS ORDERED: DICYCLOMINE 10 MG/ML 2 ML AMP IM STA (02:22)
[2018-08-16] MEDS: ONDANSETRON 4 MG/2 ML VIAL IVP PRN ×3 (02:44→19:59)
[2018-08-16] MEDS: SODIUM CHLORIDE 0.9% 1,000 ML IV SCH ×3 (02:47→20:05)
--- NOTE | 2018-08-16 09:23 | FL ---
EXAMINATION TYPE: FL UGI w esophagus DATE OF EXAM: 08/16/2018 Comparison: CT study from yesterday. LIMITED UGI-ESOPHAGRAM: CLINICAL HISTORY: Nausea vomiting epigastric pain and diarrhea for 2 weeks. History of Francisco fundop lication surgery 3 years ago. Symptoms of reflux improved after surgery per patient. TECHNIQUE: Limited UGI-esophagram is performed utilizing 10 oz of EZ paque. A total of 1 minute 35 s econds of fluoroscopic time was utilized during procedure. 36 spot images are saved to PACS. FINDINGS: The patient swallowed contrast without difficulty or delay. Esophageal peristalsis and mo tility are within normal limits. There is good flow of contrast along the diaphragmatic hiatus into t he stomach, there is no evidence of contrast extravasation to suggest leak. No recurrent hiatal herni a is seen. There is good flow of contrast through stomach and duodenal sweep. Ligament of Treitz is n ormal in position. IMPRESSION: No evidence recurrent hiatal hernia or significant obstruction status post Francisco fundopl ication surgery 3 years ago. Suspect a mild diffuse colitis based on CT correlation.
[2018-08-16] MEDS ORDERED: DICYCLOMINE 10 MG CAP PO PRN (10:47)
--- NOTE | 2018-08-16 11:12 | P.GSHP ---
History of Present Illness H&P Date: 08/16/18 Chief Complaint: Abdominal pain CHIEF COMPLAINT: Abdominal pain HISTORY OF PRESENT ILLNESS: 43-year-old female with a history of lap mani and Mahesh fundoplication who presented to the emergency room due to abdominal pain. Patient reports she was evaluated on Monday in the emergency room due to right upper quadrant pain and she was discharged home to follow up with her PCP. She states she saw her primary care physician on Monday ordered an ultrasound. On Monday she saw Dr. Shine outpatient. She reports her pain continued to get worse and she presented to the hospital for further evaluation. She reports her pain is currently in the epigastric region. She reports no episode of vomiting yesterday. No further episodes of emesis. Initially patient had reported she had not had a bowel movement in over a week and took laxatives at home with no results. Upon further interview with the patient, she is not reporting she was having diarrhea at home. She states she is under a lot of stress at home and is concerned about an ulcer and requesting an EGD. PAST MEDICAL HISTORY: See list. PAST SURGICAL HISTORY: See list. MEDICATIONS: See list. ALLERGIES: See list. SOCIAL HISTORY: No illicit drug use. REVIEW OF SYSTEMS: CONSTITUTIONAL: Denies fever or chills. HEENT: Denies blurred vision, vision changes, or eye pain. Denies hemoptysis ENDOCRINE: Denies heat or cold intolerance. CARDIOVASCULAR: Denies chest pain or pressure. RESPIRATORY: No shortness of breath. GASTROINTESTINAL: Reports epigastric pain. Reports nausea. Reports emesis prior to coming to the hospital. Currently denies emesis. NEURO: Denies history of seizures. PSYCH: No depression or suicidal ideation HEMATOLOGIC: Denies bleeding disorders. LYMPHATIC: The patient denies any lumps and bumps around the neck. GENITOURINARY: Denies any blood in urine or increased urinary frequency. MUSCULOSKELETAL: Denies myalgias. Denies joint swelling. Denies decreased range of motion beyond patients baseline. SKIN: Denies pruitis. Denies rash. PHYSICAL EXAM: VITAL SIGNS: Currently stable. GENERAL: Well-developed in no acute distress. HEENT: No sclera icterus. Extraocular movements grossly intact. Moist buccal mucosa. Head is atraumatic, normocephalic. Hears conversational speech. No nasal drainage. NECK: Supple without lymphadenopathy. CHEST: Non-labored respirations and equal bilateral excursions. CARDIOVASCULAR: Regular rate with regular rhythm. Palpable 2+ radial pulses. ABDOMEN: Soft. Mildly bloated. Tenderness upon palpation of epigastric region. MUSCULOSKELETAL: No clubbing, cyanosis or edema. NEUROLOGIC: No focal or lateralizing signs. Cranial nerves II through XII grossly intact. PSYCH: Appropriate affect. Alert and oriented to person, place and time. SKIN: Well perfused. Good skin turgor. IMAGIN. Abdominal ultrasound: Unremarkable right upper quadrant ultrasound status post previous cholecystectomy. Non-dilated common bile duct. 2. CT abdomen and pelvis: Mild gaseous and fluid distention of colon with scattered colonic fluid levels which are nonspecific and suggest a diarrheal state. No evidence of bowel obstruction or pneumoperitoneum. 3. Esophagram: No evidence of recurrent hiatal hernia or significant obstruction status post Mahesh fundoplication. Suspect mild diffuse colitis based on CT correlation. ASSESSMENT: 1. Epigastric and abdominal pain with associated nausea and isolated episode of emesis, suspect gastroenteritis 2. History of cholecystectomy and Mahesh fundoplication PLAN: Case discussed with Dr. Shine. Will consult GI for further evaluation of epigastric pain and chronic nausea. Will defer any possible endoscopic procedures to GI. Continue clear liquid diet. Supportive care. Pain control. Antiemetics. Nurse practitioner note has been reviewed by physician. Signing provider agrees with the documented findings, assessment, and plan of care. Past Medical History Past Medical History: Fibromyalgia, GERD/Reflux, Osteoarthritis (OA), Supraventricular Tachycardia (SVT), Syncope Additional Past Medical History / Comment(s): Protein S deficiency, ischemic colitis, "blood clot" lining of colon, IBS, peptic ulcer, gastritis, anorexia nervosa, hypoglycemia, bilateral foot/ankle edema, bulging discs low back and cervical with chronic pain, kidney stones. History of Any Multi-Drug Resistant Organisms: None Reported Past Surgical History: Cholecystectomy, Hysterectomy Additional Past Surgical History / Comment(s): EGDs, colonoscopy with part of lining removed, ureteral stents d/t stones since removed, mahesh fundloplasty, cardiac cath 1998-normal, pain procedures low back and cervical. Past Anesthesia/Blood Transfusion Reactions: Motion Sickness, Postoperative Nausea & Vomiting (PONV) Additional Past Anesthesia/Blood Transfusion Reaction / Comment(s): 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-SEE DIRECTIVE IN CHART. Smoking Status: Never smoker - Past Family History Father Family Medical History: Hyperlipidemia Additional Family Medical History / Comment(s): Mitral valve repair Mother Family Medical History: Cancer Additional Family Medical History / Comment(s): lupus involving the skin. Medications and Allergies Home Medications Medication Instructions Recorded Confirmed Type clonazePAM [KlonoPIN] 2 mg PO TID 09/03/14 08/15/18 History Metoprolol Tartrate 25 mg PO BID 03/16/16 08/15/18 History PARoxetine HCL [Paxil] 60 mg PO DAILY 03/16/16 08/15/18 History traZODone HCL 300 mg PO HS 03/25/17 08/15/18 History Ondansetron [Zofran ODT] 4 mg PO Q8HR PRN #10 tab 08/11/18 08/15/18 Rx Cyclobenzaprine [Flexeril] 5 mg PO TID PRN 08/15/18 08/15/18 History Lurasidone [Latuda] 80 mg PO DAILY 08/15/18 08/15/18 History Omeprazole 40 mg PO DAILY 08/15/18 08/15/18 History Allergies Allergy/AdvReac Type Severity Reaction Status Date / Time glycopyrrolate [From Robinul] AdvReac PARANOIA Verified 08/15/18 22:26 metoclopramide HCl AdvReac PARANOIA Verified 08/15/18 22:26 [From Reglan] morphine AdvReac Chest Pain Verified 08/15/18 22:26 prochlorperazine edisylate AdvReac Nausea & Verified 08/15/18 22:26 [From Compazine] Vomiting prochlorperazine maleate AdvReac Nausea & Verified 08/15/18 22:26 [From Compazine] Vomiting Surgical - Exam Vital Signs Temp Pulse Resp BP Pulse Ox 98.4 F 88 18 132/87 96 08/15/18 20:07 08/15/18 20:07 08/15/18 20:07 08/15/18 20:07 08/15/18 20:07 Results - Labs 08/15/18 21:52 08/15/18 21:52 Abnormal Lab Results - Last 24 Hours (Table) 08/15/18 08/15/18 Range/Units 21:52 23:00 APTT 21.3 L (22.0-30.0) sec Glucose 106 H (74-99) mg/dL AST 66 H (14-36) U/L ALT 142 H (9-52) U/L Amylase 116 H (30-110) U/L Diabetes panel 08/15/18 Range/Units 21:52 Sodium 140 (137-145) mmol/L Potassium 4.6 (3.5-5.1) mmol/L Chloride 105 (98-107) mmol/L Carbon Dioxide 27 (22-30) mmol/L BUN 17 (7-17) mg/dL Creatinine 0.87 (0.52-1.04) mg/dL Glucose 106 H (74-99) mg/dL Calcium 9.7 (8.4-10.2) mg/dL AST 66 H (14-36) U/L ALT 142 H (9-52) U/L Alkaline Phosphatase 80 (38-126) U/L Total Protein 7.3 (6.3-8.2) g/dL Albumin 3.9 (3.5-5.0) g/dL Calcium panel 08/15/18 Range/Units 21:52 Calcium 9.7 (8.4-10.2) mg/dL Albumin 3.9 (3.5-5.0) g/dL Pituitary panel 08/15/18 Range/Units 21:52 Sodium 140 (137-145) mmol/L Potassium 4.6 (3.5-5.1) mmol/L Chloride 105 (98-107) mmol/L Carbon Dioxide 27 (22-30) mmol/L BUN 17 (7-17) mg/dL Creatinine 0.87 (0.52-1.04) mg/dL Glucose 106 H (74-99) mg/dL Calcium 9.7 (8.4-10.2) mg/dL Adrenal panel 08/15/18 Range/Units 21:52 Sodium 140 (137-145) mmol/L Potassium 4.6 (3.5-5.1) mmol/L Chloride 105 (98-107) mmol/L Carbon Dioxide 27 (22-30) mmol/L BUN 17 (7-17) mg/dL Creatinine 0.87 (0.52-1.04) mg/dL Glucose 106 H (74-99) mg/dL Calcium 9.7 (8.4-10.2) mg/dL Total Bilirubin 0.4 (0.2-1.3) mg/dL AST 66 H (14-36) U/L ALT 142 H (9-52) U/L Alkaline Phosphatase 80 (38-126) U/L Total Protein 7.3 (6.3-8.2) g/dL Albumin 3.9 (3.5-5.0) g/dL
[2018-08-16] MEDS: HYDROmorphone 0.5 MG/0.5 ML SYRINGE IVP PRN ×2 (11:25→17:35)
[2018-08-16] MEDS ORDERED: PANTOPRAZOLE 40 MG TABLET PO SCH (13:00)
[2018-08-16] MEDS ORDERED: MAGNESIUM CITRATE 296 ML BOTTLE PO ONE (13:11)
[2018-08-16] MEDS: KETOROLAC 30 MG/ML 1 ML VIAL IVP SCH ×3 (13:32→23:11)
[2018-08-16] MEDS: METOPROLOL TARTRATE 25 MG TAB PO SCH ×2 (13:33→21:08)
[2018-08-16] MEDS: PARoxetine 20 MG TAB PO SCH (13:34)
[2018-08-16] MEDS: CYCLOBENZAPRINE 5 MG TAB PO PRN (15:28)
[2018-08-16] MEDS: clonazePAM 1 MG TAB PO SCH ×2 (16:48→21:08)
[2018-08-16] MEDS: LURASIDONE 80 MG TAB PO SCH (16:48)
--- NOTE | 2018-08-16 19:08 | MR ---
EXAMINATION TYPE: MR MRCP DATE OF EXAM: 08/16/2018 COMPARISON: None HISTORY: Abdominal pain. Nausea and vomiting Standard multiplanar, multisequence MRI departmental protocol Multiplanar, multisequence images of the abdomen were acquired. FINDINGS: Heart appears slightly enlarged. There is no focal splenic defect. There is no adrenal mass . Kidneys have normal size and contour. There is no hydronephrosis. There is no evidence of pancreati c mass. There is mild ectasia of the biliary tree. Gallbladder is absent. There is no sign of ascites . There is no sign of pleural effusion. There is no evidence of retroperitoneal adenopathy. There is normal flow-void in the portal venous system. The common bile duct measures 8 mm. I see no filling defect in the common bile duct. There is no evidence of focal bone destruction. IMPRESSION: Mild ectasia of the biliary tree but within normal limits after cholecystectomy. No evidence of a karoline ling defect to suggest a common duct stone.
[2018-08-16] MEDS: CALCIUM CARBONATE LIQUID 500 MG/5 ML CUP PO SCH (20:36)
[2018-08-16] MEDS: traZODone HCL 100 MG TAB PO SCH (20:36)
[2018-08-16] MEDS: PANTOPRAZOLE 40 MG TABLET PO SCH (21:08)
--- NOTE | 2018-08-16 23:49 | CONS ---
CONSULTATION DATE OF CONSULTATION: 08/16/2018 REASON FOR CONSULTATION: Medical management, requested by Dr. Shine. CONSULTATION: This is a pleasant 43-year-old patient who follows with Dr. Ley. Chronic stable medical conditions include anorexia nervosa, body dysmorphic disorder, depression, fibromyalgia, GERD, protein S mutation, irritable bowel syndrome, herniated discs with chronic pain in the neck, bipolar disorder. Patient had a Mahesh fundoplication done [address] Shine[address] The patient presents with upper abdominal pain and was seen in the ER and then sent home. When she saw Dr. Shine, the patient was admitted for the same. The patient has been having nausea. No fever. No chills. Normally has a bowel movement every week. Patient had a barium swallow that was essentially unremarkable, and after that she had a CT scan. Patient had a pretty good amount of bowel movement yesterday evening and also some liquid stools. GI was also consulted. REVIEW OF SYSTEMS: CONSTITUTIONAL: Tired. HEENT: None. RESPIRATORY: None. CARDIOVASCULAR: None. GASTROINTESTINAL: As above. GENITOURINARY: None. MUSCULOSKELETAL: Chronic fibromyalgia. HEMATOLOGICAL: None. LYMPHATICS: None. PSYCHIATRY: A bit anxious. NEUROLOGICAL: None. PAST MEDICAL HISTORY: 1. Anorexia nervosa. 2. Body dysmorphic disorder. 3. Bipolar disorder. 4. Fibromyalgia. 5. GERD. 6. Protein S mutation. 7. Irritable bowel syndrome. 8. Peptic ulcer disease. 9. Herniated disc with chronic pain. PAST SURGICAL HISTORY: 1. Cholecystectomy. 2. Hysterectomy. 3. Ureteral stents due to stones. 4. Mahesh fundoplasty. 5. Cardiac cath in 1998; normal. 6. Pain procedures for the lower back and cervical spine. PSYCH HISTORY: Bipolar disorder. SOCIAL HISTORY: Patient is on Disability. Lives with her parents. No smoking. No alcohol. FAMILY HISTORY: Lupus. HOME MEDICATIONS: 1. Zofran 4 mg q.8 p.r.n. 2. Flexeril 5 mg p.o. t.i.d. p.r.n. 3. Trazodone 300 mg at bedtime. 4. Klonopin 2 mg p.o. t.i.d. 5. Paxil 60 mg p.o. daily. 6. Omeprazole 40 mg p.o. daily. 7. Lopressor 25 mg b.i.d. 8. Latuda 80 mg p.o. daily. ALLERGIES: 1. ROBINUL. 2. REGLAN. 3. MORPHINE. 4. COMPAZINE. PHYSICAL EXAMINATION: VITAL SIGNS ON PRESENTATION: Temperature 98.4, pulse 88, respiration 18, blood pressure 132/87, pulse ox 96% on room air. GENERAL APPEARANCE: Thin build. Lying in bed. Slightly anxious-appearing. EYES: Pupils equal. Conjunctivae normal. HEENT: External appearance of nose and ears normal. Oral cavity a bit dry. NECK: JVD not raised. Mass not palpable. RESPIRATORY: Effort normal. Lungs are clear. CARDIOVASCULAR: First and second sounds normal. No edema. ABDOMEN: Mild epigastric tenderness. No guarding or rigidity. Liver and spleen not palpable. Bowel sounds are present. LYMPHATIC: No lymph node palpable in neck or axillae. PSYCHIATRY: Alert and oriented x3. Mood and affect slightly anxious-appearing. NEUROLOGICAL: Pupils equal. Cranial nerves grossly intact. Power and sensation grossly intact. INVESTIGATIONS: White count 7.7, hemoglobin 13.4, potassium 4.6. BUN and creatinine are normal. AST 66, ALT 142. Patient's previous lab work did show AST and ALT to be chronically elevated. Abdominal ultrasound nonspecific. CT scan of the abdomen and pelvis nonspecific. Barium swallow nonspecific. ASSESSMENT: 1. This is a patient who presented with 2 days of increasing upper abdominal pain with some tenderness. No fever, no chills. With a prior history of Mahesh fundoplication. Most likely these are symptoms from gastritis and/or peptic ulcer disease. 2. Anorexia nervosa. 3. Body dysmorphic disorder. 4. Bipolar disorder. 5. Chronic fibromyalgia. 6. Gastroesophageal reflux disease. 7. Protein S mutation. 8. Irritable bowel syndrome. 9. Chronic neck and lower back pain from herniated disc. PLAN: Home medications will be resumed. Patient was taking omeprazole at home. Will increase the dose of Protonix to 40 mg twice a day. Will also add Tums. Patient did have an EGD in January by Dr. Shine. Gastritis was found. The patient has already had a good bowel movement yesterday evening. Care was discussed with the patient. Thank you, Dr. Shine. MMODL / IJN: [id number] /
--- NOTE | 2018-08-17 00:18 | P.CONS ---
History of Present Illness - Reason for Consult Consult date: 08/16/18 Rule out choledocholithiasis Requesting physician: Hesham Shine - Chief Complaint Abdominal pain - History of Present Illness 43-year-old female patient with a medical history significant for GERD, chronic constipation, prior history of cholecystectomy for symptomatic cholelithiasis, Rc fundoplication, and fibromyalgia who presented to the hospital due to complaints of abdominal pain. The patient has a long-standing history of symptoms of abdominal pain. She reports symptoms since January 2018. Currently she has had an increase in the frequency and intensity of her abdominal pain, reporting symptoms on a daily basis. She reports pain in the epigastric and right upper quadrant of her abdomen described as sharp and dull, and achy. Episodes of pain can last from 5-30 minutes at a time. She has tried until 10 mg orally in the past but states that this does not help as much as the intramuscular Bentyl which she receives in the hospital. The patient reports episodes of nausea and vomiting in association with her abdominal pain. She reports bringing up phlegm with the vomiting. She also has a known history of GERD but has only recently been restarted on PPI therapy being prescribed omeprazole 40 mg daily. She does take Motrin regularly approximately 400-800 mg 1-2 times per day at least a few times per week and was doing this before being started on the PPI therapy. She also has a chronic history of constipation. She reports using senna at home. She has been tried on liquids us in the past but reports that this has caused her diarrhea. Normal CBC and INR on presentation with mild elevation of transaminases with AST 66 and ALT 142 , with a normal total bilirubin and alkaline phosphatase. Imaging has included an x-ray barium of the esophagram which was negative for recurrence of hiatal hernia or obstruction. Review of Systems REVIEW OF SYSTEMS: CONSTITUTIONAL: Denies any fevers, chills, weight change or fatigue. CARDIOVASCULAR: Denies any chest pain, palpitations high or low blood pressures RESPIRATORY: Denies any shortness of breath, hemoptysis or cough. GENITOURINARY: No dysuria or hematuria. MUSCULOSKELETAL: No weakness reported. SKIN: Denies any new rashes or lesions, jaundice or pallor. PSYCHIATRIC: Reports increased life stressors. NEUROLOGY: Denies headache, denies any new focal deficits. EARS/NOSE/THROAT: No recent hearing change, congestion, nasal discharge or sore throat. EYES: No pain in eyes, discharge or change in vision. GASTROINTESTINAL: As per HPI. Past Medical History Past Medical History: Fibromyalgia, GERD/Reflux, Osteoarthritis (OA), Supraventricular Tachycardia (SVT), Syncope Additional Past Medical History / Comment(s): Protein S deficiency, ischemic colitis, "blood clot" lining of colon, IBS, peptic ulcer, gastritis, anorexia nervosa, hypoglycemia, bilateral foot/ankle edema, bulging discs low back and cervical with chronic pain, kidney stones. History of Any Multi-Drug Resistant Organisms: None Reported Past Surgical History: Cholecystectomy, Hysterectomy Additional Past Surgical History / Comment(s): EGDs, colonoscopy with part of lining removed, ureteral stents d/t stones since removed, rc fundloplasty, cardiac cath 1998-normal, pain procedures low back and cervical. Past Anesthesia/Blood Transfusion Reactions: Motion Sickness, Postoperative Nausea & Vomiting (PONV) Additional Past Anesthesia/Blood Transfusion Reaction / Comm: 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-SEE DIRECTIVE IN CHART. Smoking Status: Never smoker - Past Family History Father Family Medical History: Hyperlipidemia Additional Family Medical History / Comment(s): Mitral valve repair Mother Family Medical History: Cancer Additional Family Medical History / Comment(s): lupus involving the skin. Medications and Allergies Home Medications Medication Instructions Recorded Confirmed Type clonazePAM [KlonoPIN] 2 mg PO TID 09/03/14 08/15/18 History Metoprolol Tartrate 25 mg PO BID 03/16/16 08/15/18 History PARoxetine HCL [Paxil] 60 mg PO DAILY 03/16/16 08/15/18 History traZODone HCL 300 mg PO HS 03/25/17 08/15/18 History Ondansetron [Zofran ODT] 4 mg PO Q8HR PRN #10 tab 08/11/18 08/15/18 Rx Cyclobenzaprine [Flexeril] 5 mg PO TID PRN 08/15/18 08/15/18 History Lurasidone [Latuda] 80 mg PO DAILY 08/15/18 08/15/18 History Omeprazole 40 mg PO DAILY 08/15/18 08/15/18 History Allergies Allergy/AdvReac Type Severity Reaction Status Date / Time glycopyrrolate [From Onelia] AdvReac PARANOIA Verified 02/27/19 22:26 metoclopramide HCl AdvReac PARANOIA Verified 08/15/18 22:26 [From Reglan] morphine AdvReac Chest Pain Verified 08/15/18 22:26 prochlorperazine edisylate AdvReac Nausea & Verified 08/15/18 22:26 [From Compazine] Vomiting prochlorperazine maleate AdvReac Nausea & Verified 08/15/18 22:26 [From Compazine] Vomiting Physical Exam Vitals: Vital Signs Temp Pulse Pulse Resp BP BP BP 08/16/18 20:18 97.9 F 81 97/61 08/16/18 16:35 87 15 08/16/18 12:00 98 F 87 15 101/58 08/16/18 09:20 92 16 08/16/18 08:26 97.9 F 92 16 112/72 08/16/18 02:34 79 20 108/63 Pulse Ox 08/16/18 20:18 96 08/16/18 16:35 08/16/18 12:00 96 08/16/18 09:20 08/16/18 08:26 96 08/16/18 02:34 95 Intake and Output 08/16/18 08/16/18 08/17/18 14:59 22:59 06:59 Intake Total 1250 200 Balance 1250 200 Intake: Amount of Fluid Infused ( 1000 ml) Intake, IV Titration 200 Amount Sodium Chloride 0.9% 1, 200 000 ml @ 100 mls/hr IV . Q10H [facility] Rx#:[id number] Oral 250 Other: Voiding Method Toilet Toilet # Voids 3 1 On physical examination, patient appears comfortable in no apparent distress. HEAD: Normocephalic, atraumatic. EYES: No scleral icterus. No conjunctival injection. MOUTH: No lesions, tongue midline. NECK: Trachea midline, no gross abnormalities. CHEST: Clear to auscultation with no wheezing or rhonchi appreciated. HEART: Regular rate and rhythm. ABDOMEN: Soft, obese. Bowel sounds are positive. No organomegaly. No guarding or rigidity. EXTREMITIES: No pedal edema. SKIN: No rashes, no jaundice. NEUROLOGIC: Alert and oriented x3. No focal deficits. Results CBC & Chem 7: 08/15/18 21:52 08/15/18 21:52 Abdominal x-ray: report reviewed (x-ray barium of the esophagram which was negative for recurrence of hiatal hernia or obstruction.) Assessment and Plan (1) Intractable abdominal pain Narrative/Plan: Patient reporting severe abdominal pain in the epigastric region of her abdomen and right upper quadrant. She reports that this is similar to gallbladder attacks in the past, but is status post cholecystectomy. She had an x-ray barium swallow which was negative for recurrence of her hiatal hernia or obstruction. She has been taking NSAIDs at home and was recently restarted on PPI therapy with omeprazole 40 mg daily. She is also on Bentyl therapy. It is likely that a large component of her pain is functional in nature, with consideration for constipation also contributing to her symptoms. Only a mild elevation in her AST and ALT, however given the patient's reports of the quality of her pain MRCP was ordered which was negative for choledocholithiasis. Given the use of NSAIDs prior to PPI therapy peptic ulcer disease or other etiology are also in the differential. Current Visit: Yes Status: Acute Code(s): R10.9 - UNSPECIFIED ABDOMINAL PAIN SNOMED Code(s): 08693542 (2) GERD (gastroesophageal reflux disease) Narrative/Plan: Recently restarted on omeprazole 40 mg daily. She is also status post Rc fundoplication. Current Visit: Yes Status: Acute Code(s): K21.9 - GASTRO-ESOPHAGEAL REFLUX DISEASE WITHOUT ESOPHAGITIS SNOMED Code(s): 151752628 (3) Constipation Narrative/Plan: For which the patient takes senna laxatives at home. She reports attempting Linzess therapy in the past, however was unable to tolerate the drug due to side effects of diarrhea. Current Visit: Yes Status: Acute Code(s): K59.00 - CONSTIPATION, UNSPECIFIED SNOMED Code(s): 69016222 Plan: Supportive care Nothing by mouth Soapsuds enema ordered by primary team Magnesium citrate ordered in the setting of chronic constipation and patient reporting over one week without bowel movement Patient will need a home bowel regimen would recommend either MiraLAX titrated to bowel movements, Amitiza or other daily medical regimen MRCP ordered and negative for ductal dilation or evidence of choledocholithiasis Bentyl increased to 20 mg 4 times a day abdominal pain Patient nothing by mouth and has been offered EGD for further evaluation, she will decide if she would like to proceed with this treatment plan in the morning Thank you for allowing us to participate in the care of the patient we will continue to follow
[2018-08-17] MEDS: HYDROmorphone 0.5 MG/0.5 ML SYRINGE IVP PRN ×2 (00:28→08:59)
[2018-08-17] MEDS: KETOROLAC 30 MG/ML 1 ML VIAL IVP SCH ×4 (05:51→23:51)
[2018-08-17] MEDS: CYCLOBENZAPRINE 5 MG TAB PO PRN ×2 (05:53→21:32)
[2018-08-17] MEDS: clonazePAM 1 MG TAB PO SCH ×3 (09:55→21:32)
[2018-08-17] MEDS: PANTOPRAZOLE 40 MG TABLET PO SCH ×2 (09:56→17:09)
[2018-08-17] MEDS: METOPROLOL TARTRATE 25 MG TAB PO SCH ×2 (09:56→20:48)
[2018-08-17] MEDS: PARoxetine 20 MG TAB PO SCH (09:56)
[2018-08-17] MEDS: LURASIDONE 80 MG TAB PO SCH (09:56)
[2018-08-17] MEDS: CALCIUM CARBONATE LIQUID 500 MG/5 ML CUP PO SCH ×4 (09:58→20:49)
[2018-08-17] MEDS: SODIUM CHLORIDE 0.9% 1,000 ML IV SCH ×2 (09:59→19:06)
--- NOTE | 2018-08-17 10:28 | P.PN ---
Subjective Progress Note Date: 08/17/18 Principal diagnosis: Abdominal pain Still reports upper abdominal discomfort to the night presently resting comfortably just received pain medications. MRCP reported no evidence of filling defect. Afebrile. Objective - Vital Signs Vital signs: Vital Signs Temp 98.1 F 08/17/18 07:13 Pulse 76 08/17/18 07:13 Resp 16 08/17/18 07:13 BP 116/59 08/17/18 07:13 Pulse Ox 97 08/17/18 07:13 Intake & Output 08/16/18 08/17/18 08/17/18 18:59 06:59 18:59 Intake Total 1250 1000 Balance 1250 1000 Intake: Amount of Fluid Infused ( 1000 ml) Intake, IV Titration 1000 Amount Sodium Chloride 0.9% 1, 1000 000 ml @ 100 mls/hr IV . Q10H [facility] Rx#:[id number] Oral 250 Other: Voiding Method Toilet Toilet # Voids 3 1 - Exam General appearance: The patient is alert, oriented, in no acute distress. HET: Head is normocephalic and atraumatic. Pupils are equal and reactive. Oropharynx is clear without lesions. Neck: Supple without lymphadenopathy. Trachea midline. Heart: S1 S2. Regular rate and rhythm. Lungs: No crackles or wheezes are heard. Abdomen: Soft, mild epigastric tenderness, nondistended with bowel sounds. No peritoneal signs. No palpable organomegaly or masses. Extremities: Normal skin color and turgor. No cyanosis, rash, ulceration, clubbing, or edema. Radial and pedal pulses are 2/4 bilaterally. Neurological: No focal deficits. Strength and sensation are grossly intact. - Labs CBC & Chem 7: 08/15/18 21:52 08/15/18 21:52 Assessment and Plan (1) Intractable abdominal pain Current Visit: Yes Status: Acute Code(s): R10.9 - UNSPECIFIED ABDOMINAL PAIN SNOMED Code(s): 98449666 (2) Constipation Current Visit: Yes Status: Acute Code(s): K59.00 - CONSTIPATION, UNSPECIFIED SNOMED Code(s): 77199864 (3) GERD (gastroesophageal reflux disease) Current Visit: Yes Status: Acute Code(s): K21.9 - GASTRO-ESOPHAGEAL REFLUX DISEASE WITHOUT ESOPHAGITIS SNOMED Code(s): 102261066 Plan: 1. Dr. Ashraf recommends EGD rule out peptic ulcer disease. MRCP negative no evidence of filling defects. Continue with symptomatic supportive measures. Stool softeners to avoid constipation. Continue with Bentyl. Assessment and plan a care discussed with Dr. Ashraf
[2018-08-17] MEDS ORDERED: SENNOSIDES-DOCUSATE SODIUM 1 EACH TAB PO SCH (10:30)
[2018-08-17] MEDS ORDERED: IV FLUID CONTINUATION 400 ML IV ONE (11:45)
[2018-08-17] MEDS ORDERED: PROPOFOL 10 MG/ML 20 ML VIAL IV ONE (11:50)
--- NOTE | 2018-08-17 12:20 | P.PCN ---
Date of Procedure: 08/17/18 Description of Procedure: BRIEF HISTORY: 43-year-old female patient with a medical history significant for GERD, chronic constipation, prior history of cholecystectomy for symptomatic cholelithiasis, Mahesh fundoplication, and fibromyalgia who presented to the hospital due to complaints of abdominal pain. She reports pain in the epigastric and right upper quadrant of her abdomen described as sharp and dull, and achy. Episodes of pain can last from 5-30 minutes at a time. She has tried until 10 mg orally in the past but states that this does not help as much as the intramuscular Bentyl which she receives in the hospital. The patient reports episodes of nausea and vomiting described as phlegm but she does not some blood streaks. She also has a known history of GERD but has only recently been restarted on PPI therapy being prescribed omeprazole 40 mg daily. She does take Motrin regularly approximately 400-800 mg 1-2 times per day at least a few times per week and was doing this before being started on the PPI therapy. Imaging has included an x-ray barium of the esophagram which was negative for recurrence of hiatal hernia or obstruction.. PROCEDURE PERFORMED: Esophagogastroduodenoscopy with biopsy. Room in time 11:41 AM, procedure start time 11:53 AM. PREOPERATIVE DIAGNOSIS: Epigastric abdominal pain, GERD, hematemesis. ESTIMATED BLOOD LOSS: Minimal. IV sedation per anesthesia. PROCEDURE: After informed consent was obtained, the patient was brought into the endoscopy unit. IV sedation was administered by Anesthesia under continuous monitoring. Initially the Olympus GIF-190 video endoscope was inserted into the mouth. Esophagus intubated without any difficulty. It was gradually advanced into the stomach and duodenum and carefully examined. The bulb and the second part of the duodenum appeared normal. The scope at this time was withdrawn to the stomach, adequately insufflated with air, and upon careful examination, mucosa of the antrum, body, cardia and the fundus appeared grossly normal. There was mild scattered erythema in the antrum and body with superficial erosions noted indicative of mild gastritis likely in the setting of NSAID use. On retroflexion evidence of the patient's prior Mahesh fundoplication was noted. The scope was then withdrawn into the esophagus. The GE junction was located at 40 cm from the incisors. The esophagus appeared normal. There were no erosions or ulcerations seen and the patient tolerated the procedure well. IMPRESSION: 1. Mild to moderate gastritis antrum and body, biopsied. 2. No other pathology found to explain patient's intractable abdominal pain and other symptoms. RECOMMENDATIONS: The findings of this examination were discussed with the patient, her mother and sister. Okay to start full liquid and advance to a GI soft as tolerated. Continue Bentyl therapy. Continue Protonix twice a day. Continue to follow symptomatically..
[2018-08-17] MEDS ORDERED: SENNOSIDES-DOCUSATE SODIUM 1 EACH TAB PO PRN (14:38)
--- NOTE | 2018-08-17 15:45 | P.PN ---
Progress Note - Text Progress Note Date: 08/17/18 The patient remained stable. She said some minimal nausea. She underwent EGD by Dr. Worthy today which showed some mild gastritis. The patient does not want to go home today. She's wished to be discharged home in the a.m. On exam her vital signs are stable. Her abdomen soft. Chronic nausea and abdominal pain. She'll be discharged home in the a.m.
[2018-08-17] MEDS: DICYCLOMINE 10 MG CAP PO PRN (17:46)
[2018-08-17] MEDS: traZODone HCL 100 MG TAB PO SCH (20:48)
[2018-08-17 21:16] VITALS: PULSE 77; RESP 16
[2018-08-18 05:26] VITALS: BP 105/67; TEMP 97.8
[2018-08-18] MEDS: KETOROLAC 30 MG/ML 1 ML VIAL IVP SCH ×2 (05:41→12:14)
[2018-08-18] MEDS: SODIUM CHLORIDE 0.9% 1,000 ML IV SCH ×2 (05:44→11:43)
[2018-08-18 08:41] LABS: Appearance,Urine Clear (Clear); Bilirubin,Urine Negative (Negative); Blood,Urine Negative (Negative); Color,Urine Yellow; Glucose,Urine (UA) Negative (Negative); Ketones,Urine Negative (Negative); Leukocyte Esterase,Urine Negative (Negative); Nitrite,Urine Negative (Negative); PH, Urine 5.5 (5.0-8.0); Protein,Urine Negative (Negative); Specific Gravity,Urine 1.007 (1.001-1.035); Urobilinogen,Urine <2.0 mg/dL (<2.0)
--- NOTE | 2018-08-18 08:57 | P.PN ---
Subjective Progress Note Date: 08/18/18 Principal diagnosis: Abdominal pain Patient doing slightly better. She is hoping to go home today. Tolerating diet. Yesterday's EGD showed mild gastritis. Objective - Vital Signs Vital signs: Vital Signs Temp 97.8 F 08/18/18 05:00 Pulse 77 08/18/18 05:00 Resp 16 08/18/18 05:00 BP 105/67 08/18/18 05:00 Pulse Ox 92 L 08/18/18 05:00 Intake & Output 08/17/18 08/18/18 08/18/18 18:59 06:59 18:59 Intake Total 440 670 Balance 440 670 Intake: IV 200 Intake, IV Titration 100 Amount Sodium Chloride 0.9% 1, 100 000 ml @ 100 mls/hr IV . Q10H [facility] Rx#:[id number] Oral 240 570 Other: Voiding Method Toilet Toilet # Voids 2 1 # Bowel Movements 1 - Exam Abdomen: Soft, mild epigastric tenderness - Labs CBC & Chem 7: 08/15/18 21:52 08/15/18 21:52 Assessment and Plan Plan: Will plan discharge today. Outpatient follow-up with Dr. Shine and Dr. muir.
[2018-08-18] MEDS: PARoxetine 20 MG TAB PO SCH (09:03)
[2018-08-18] MEDS: METOPROLOL TARTRATE 25 MG TAB PO SCH (09:03)
[2018-08-18] MEDS: PANTOPRAZOLE 40 MG TABLET PO SCH (09:03)
[2018-08-18] MEDS: LURASIDONE 80 MG TAB PO SCH (09:03)
[2018-08-18] MEDS: clonazePAM 1 MG TAB PO SCH (09:03)
[2018-08-18] MEDS: CALCIUM CARBONATE LIQUID 500 MG/5 ML CUP PO SCH ×2 (09:04→11:43)
[2018-08-18] MEDS: DICYCLOMINE 10 MG CAP PO PRN (09:11)
--- NOTE | 2018-08-18 11:15 | PN ---
PROGRESS NOTE DATE OF SERVICE: 08/17/2018 PRESENTING COMPLAINT: Epigastric pain. INTERVAL HISTORY: This patient was seen by me yesterday. The computers were down; could not dictate. Patient is status post history of Mahesh fundoplication. She presented with epigastric pain felt to be gastritis. Patient's dose of PPI was increased. Tums was added. Epigastric pain is better. Tolerating a liquid diet. She has been out of bed. REVIEW OF SYSTEMS: Done for constitutional, cardiovascular, GI, pulmonary; relevant findings as above. CURRENT MEDICATIONS: Reviewed. They include Protonix, Bentyl, Tums. PHYSICAL EXAMINATION: Temperature 98.2, pulse 76, respiration 18, blood pressure 118/67, pulse ox 98% on room air. GENERAL APPEARANCE: Sitting on bed. Appears a bit more peppy. EYES: Pupils equal. Conjunctivae normal. NECK: JVD not raised. Mass not palpable. RESPIRATORY: Effort normal. Lungs are clear. CARDIOVASCULAR: First and second sounds normal. No edema. ABDOMEN: Minimal epigastric tenderness. No guarding or rigidity. Liver and spleen not palpable. PSYCHIATRY: Alert and oriented x3. Mood and affect less anxious-appearing. INVESTIGATIONS: No blood work from today. ASSESSMENT: 1. Epigastric pain, likely gastritis and/or peptic ulcer disease, with clinical response to above treatment. 2. Anorexia nervosa. 3. Body dysmorphic disorder. 4. Bipolar disorder. 5. Chronic fibromyalgia. 6. Gastroesophageal reflux disease. 7. Protein S mutation. 8. Irritable bowel syndrome. 9. Chronic neck and lower back pain from herniated disc. PLAN: Patient was due to go down for EGD per GI. Care was discussed with the patient. I also spoke to Dr. Shine later in the evening that if the EGD unremarkable, patient possibly could be discharged home. MMODL / IJN: [id number] /
--- NOTE | 2018-08-18 22:54 | PN ---
PROGRESS NOTE DATE OF SERVICE: August 18, 2018. PRESENTING COMPLAINT: Epigastric pain. INTERVAL HISTORY: The patient presented with epigastric pain. EGD did confirm gastritis. Symptoms are better. Dose of PPI was increased. Also on Tums, doing better. Patient's father is present. Has been out of bed. REVIEW OF SYSTEMS: Done for constitutional, cardiovascular, GI, pulmonary; relevant findings as above. CURRENT MEDICATIONS: Reviewed. PHYSICAL EXAMINATION: VITAL SIGNS: Temperature 97.8, pulse 77, respirations 16, blood pressure 105/67, pulse ox 92 percent on room air. GENERAL APPEARANCE: Sitting up, awake. EYES: Pupils equal. Conjunctivae normal. NECK: JVD not raised. Mass not palpable. RESPIRATORY: Effort normal. LUNGS are clear. CARDIOVASCULAR: 1st and 2nd sounds normal. No edema. ABDOMEN: Minimal epigastric tenderness. Soft. PSYCH AO x3. Mood and affect slightly anxious-appearing. INVESTIGATIONS: EGD results were noted. ASSESSMENT: 1. Acute gastric pain from acute on chronic gastritis. 2. Anorexia nervosa. 3. Body dysmorphic disorder. 4. Bipolar disorder. 5. Chronic fibromyalgia. 6. Gastroesophageal reflux disease. 7. Protein S mutation. 8. Irritable bowel syndrome. 9. Chronic neck and lower back pain from herniated disc. PLAN: The patient is stable to be discharged. Continue current medication and treatment plan. Follow up with Dr. Shine and Gastroenterology. MMODL / IJN: [id number] /
--- NOTE | 2018-08-29 20:02 | P.DS ---
Providers Date of admission: 08/16/18 00:24 Expected date of discharge: 08/29/18 Attending physician: Hesham Shine Consults: 08/16/18 09:32 Consult Physician Routine Consulting Provider: Satish Garcia Consult Reason/Comments: medical management Do you want consulting provider notified?: Yes 08/16/18 11:03 Consult Physician Routine Consulting Provider: Edmar Ashraf Consult Reason/Comments: abdominal pain, chronic nausea Do you want consulting provider notified?: Yes Primary care physician: Presley [facility] Course: Patient with abdominal pain. Dr. Shine admitted this patient. He was familiar with her from previous interactions. GI was consulted. She up her endoscopy showing gastritis. During her stay her pain improved. She was discharged home with plans for outpatient follow-up. Patient Condition at Discharge: Stable Plan - Discharge Summary Discharge Rx Participant: No New Discharge Prescriptions: No Action clonazePAM [KlonoPIN] 2 mg PO TID PARoxetine HCL [Paxil] 60 mg PO DAILY Metoprolol Tartrate 25 mg PO BID traZODone HCL 300 mg PO HS Ondansetron [Zofran ODT] 4 mg PO Q8HR PRN #10 tab PRN Reason: Nausea Omeprazole 40 mg PO DAILY Lurasidone [Latuda] 80 mg PO DAILY Cyclobenzaprine [Flexeril] 5 mg PO TID PRN PRN Reason: Muscle Spasm Albuterol Inhaler [Ventolin Hfa Inhaler] 1 - 2 puff INHALATION RT-Q6H PRN #1 inhaler PRN Reason: Wheezing Codeine Phosphate/Guaifenesin [Virtussin AC Liquid] 5 ml PO Q4H PRN 3 Days #90 ml PRN Reason: Cough predniSONE [Deltasone] 40 mg PO DAILY 5 Days #10 tablet Nystatin 100,000 Unit/ml Susp [Mycostatin Oral Susp] 5 ml PO QID #1 bottle Discharge Medication List clonazePAM [KlonoPIN] 2 mg PO TID 09/03/14 [History] Metoprolol Tartrate 25 mg PO BID 03/16/16 [History] PARoxetine HCL [Paxil] 60 mg PO DAILY 03/16/16 [History] traZODone HCL 300 mg PO HS 03/25/17 [History] Ondansetron [Zofran ODT] 4 mg PO Q8HR PRN #10 tab 08/11/18 [Rx] Cyclobenzaprine [Flexeril] 5 mg PO TID PRN 08/15/18 [History] Lurasidone [Latuda] 80 mg PO DAILY 08/15/18 [History] Omeprazole 40 mg PO DAILY 08/15/18 [History] Albuterol Inhaler [Ventolin Hfa Inhaler] 1 - 2 puff INHALATION RT-Q6H PRN #1 inhaler 08/19/18 [Rx] Codeine Phosphate/Guaifenesin [Virtussin AC Liquid] 5 ml PO Q4H PRN 3 Days #90 ml 08/19/18 [Rx] Nystatin 100,000 Unit/ml Susp [Mycostatin Oral Susp] 5 ml PO QID #1 bottle 08/19/18 [Rx] predniSONE [Deltasone] 40 mg PO DAILY 5 Days #10 tablet 08/19/18 [Rx] Follow up Appointment(s)/Referral(s): Presley Ley MD [Primary Care Provider] - 08/22/18 11:00 am Edmar Ashraf MD [STAFF PHYSICIAN] - 08/28/18 4:00 pm Hesham Shine MD [STAFF PHYSICIAN] - As Needed Patient Instructions/Handouts: Constipation (DC), Gastroesophageal Reflux Disease (DC), Acute Abdominal Pain (DC) Activity/Diet/Wound Care/Special Instructions: Activity as tolerated. Discharge Disposition: HOME SELF-CARE
== END 2018-08-18 13:00 | disposition home or self-care (01) ==
LOC: EC 20:01 → 3NMEDONC 08-16 00:24
PROVIDERS: ADMIT Surgery; ATTEND Surgery
DX: K29.00 Acute gastritis without bleeding (principal); K29.50 Unspecified chronic gastritis without bleeding; M19.90 Unspecified osteoarthritis, unspecified site; F31.9 Bipolar disorder, unspecified; K21.9 Gastro-esophageal reflux disease without esophagitis; M79.7 Fibromyalgia; F45.22 Body dysmorphic disorder; F41.9 Anxiety disorder, unspecified; F50.00 Anorexia nervosa, unspecified; M50.20 Other cervical disc displacement, unspecified cervical region; M51.26 Other intervertebral disc displacement, lumbar region; D68.59 Other primary thrombophilia; K58.1 Irritable bowel syndrome with constipation; K55.9 Vascular disorder of intestine, unspecified; Z79.899 Other long term (current) drug therapy; Z90.710 Acquired absence of both cervix and uterus; Z87.442 Personal history of urinary calculi; Z86.59 Personal history of other mental and behavioral disorders; Z87.11 Personal history of peptic ulcer disease
CPT/HCPCS: 96376 ×4; 96361 ×5; 96372; 96374; 96375; 99285; 36415; 88305; 80053; 82150; 83690; 83735; 85025; 85610; 85730; 81003; 74240; 76705; 74177; 74181; 43239; G0378 ×3; J0500 ×2; J2405 ×2; J1885 ×4; J2704; J1170 ×3; Q9967

== ENCOUNTER 2018-08-19 01:56 | Emergency (ER) | payer OTHER ==
[2018-08-19] MEDS ORDERED: SODIUM CHLORIDE 0.9% 1,000 ML IV STA (02:11)
[2018-08-19] MEDS ORDERED: IPRATROPIUM-ALBUTEROL 3 ML NEB INHALATION STA ×2 (02:14→06:12)
[2018-08-19] MEDS ORDERED: methylPREDNISolone SOD SUCCI 125 MG/2 ML VIAL IVP STA (02:14)
--- NOTE | 2018-08-19 02:33 | ED ---
General Adult HPI <Yadi Patino P - Last Filed: 08/19/18 07:06> - General Source: patient, EMS, RN notes reviewed Mode of arrival: EMS Limitations: no limitations <En Bob - Last Filed: 08/20/18 01:59> - General Chief complaint: Shortness of Breath Stated complaint: YORDY Time Seen by Provider: 08/19/18 01:59 - History of Present Illness Initial comments: 43-year-old female with a past medical history of fibromyalgia, GERD, SVT presents to the emergency department for a chief complaint of cough times one day. Patient states this started this morning. She states it seems to be getting worse and she feels short of breath with this. She states cough is productive with white sputum. Denies any hemoptysis. Denies any chest pain. Patient does have a fever of 101 at home. Patient has a history of hysterectomy. Patient denies IV drug abuse or smoking . Patient recently released from the hospital 5 days ago after a three-day stay for GI workup. Patient has no other complaints at this time including chest pain, abdominal pain, nausea or vomiting, headache, or visual changes. (En Bob) - Related Data Home Medications Medication Instructions Recorded Confirmed clonazePAM [KlonoPIN] 2 mg PO TID 09/03/14 08/15/18 Metoprolol Tartrate 25 mg PO BID 03/16/16 08/15/18 PARoxetine HCL [Paxil] 60 mg PO DAILY 03/16/16 08/15/18 traZODone HCL 300 mg PO HS 03/25/17 08/15/18 Cyclobenzaprine [Flexeril] 5 mg PO TID PRN 08/15/18 08/15/18 Lurasidone [Latuda] 80 mg PO DAILY 08/15/18 08/15/18 Omeprazole 40 mg PO DAILY 08/15/18 08/15/18 Previous Rx's Medication Instructions Recorded Ondansetron [Zofran ODT] 4 mg PO Q8HR PRN #10 tab 08/11/18 Albuterol Inhaler [Ventolin Hfa 1 - 2 puff INHALATION RT-Q6H PRN 08/19/18 Inhaler] #1 inhaler Codeine Phosphate/Guaifenesin 5 ml PO Q4H PRN 3 Days #90 ml 08/19/18 [Virtussin AC Liquid] Nystatin 100,000 Unit/ml Susp 5 ml PO QID #1 bottle 08/19/18 [Mycostatin Oral Susp] predniSONE [Deltasone] 40 mg PO DAILY 5 Days #10 tablet 08/19/18 Allergies Allergy/AdvReac Type Severity Reaction Status Date / Time glycopyrrolate [From Robinul] AdvReac PARANOIA Verified 08/19/18 02:01 metoclopramide HCl AdvReac PARANOIA Verified 08/19/18 02:01 [From Reglan] morphine AdvReac Chest Pain Verified 08/19/18 02:01 prochlorperazine edisylate AdvReac Nausea & Verified 08/19/18 02:01 [From Compazine] Vomiting prochlorperazine maleate AdvReac Nausea & Verified 08/19/18 02:01 [From Compazine] Vomiting Review of Systems ROS Other: All systems not noted in ROS Statement are negative. <Yadi Patino P - Last Filed: 08/19/18 07:06> ROS Other: All systems not noted in ROS Statement are negative. <En Bob P - Last Filed: 08/20/18 01:59> ROS Statement: Those systems with pertinent positive or pertinent negative responses have been documented in the HPI. Past Medical History Past Medical History: No Reported History, Fibromyalgia, GERD/Reflux, Osteoarthritis (OA), Supraventricular Tachycardia (SVT), Syncope Additional Past Medical History / Comment(s): Protein S deficiency, ischemic colitis, "blood clot" lining of colon, IBS, peptic ulcer, gastritis, anorexia nervosa, hypoglycemia, bilateral foot/ankle edema, bulging discs low back and cervical with chronic pain, kidney stones. History of Any Multi-Drug Resistant Organisms: None Reported Past Surgical History: Cholecystectomy, Hysterectomy Additional Past Surgical History / Comment(s): EGDs, colonoscopy with part of lining removed, ureteral stents d/t stones since removed, rc fundloplasty, cardiac cath 1998-normal, pain procedures low back and cervical. Past Anesthesia/Blood Transfusion Reactions: Motion Sickness, Postoperative Nausea & Vomiting (PONV) Additional Past Anesthesia/Blood Transfusion Reaction / Comment(s): 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-SEE DIRECTIVE IN CHART. Past Psychological History: Anxiety, Bipolar, Depression Smoking Status: Never smoker - Past Family History Father Family Medical History: Hyperlipidemia Additional Family Medical History / Comment(s): Mitral valve repair Mother Family Medical History: Cancer Additional Family Medical History / Comment(s): lupus involving the skin. <En Bob P - Last Filed: 08/20/18 01:59> General Exam Limitations: no limitations General appearance: alert, in no apparent distress Head exam: Present: atraumatic, normocephalic, normal inspection Eye exam: Present: normal appearance, PERRL, EOMI. Absent: scleral icterus, conjunctival injection, periorbital swelling ENT exam: Present: normal exam, mucous membranes moist Neck exam: Present: normal inspection, full ROM. Absent: tenderness, meningismus, lymphadenopathy Respiratory exam: Present: wheezes (minimal wheeze bilat), rales (bilat rales) Cardiovascular Exam: Present: regular rate, normal rhythm, normal heart sounds. Absent: systolic murmur, diastolic murmur, rubs, gallop, clicks GI/Abdominal exam: Present: soft, normal bowel sounds. Absent: distended, tenderness, guarding, rebound, rigid Neurological exam: Present: alert, oriented X3, CN II-XII intact Psychiatric exam: Present: normal affect, normal mood <En Bob P - Last Filed: 08/20/18 01:59> Vital Signs 08/19/18 08/19/18 08/19/18 01:58 02:29 02:30 Temperature 99.8 F H Pulse Rate 109 H 88 85 Respiratory 24 22 Rate Blood Pressure 112/63 112/63 O2 Sat by Pulse 90 L Oximetry 08/19/18 08/19/18 08/19/18 02:39 05:00 05:30 Temperature Pulse Rate 92 76 80 Respiratory 16 18 Rate Blood Pressure 118/75 126/78 O2 Sat by Pulse 100 100 Oximetry 08/19/18 08/19/18 08/19/18 06:25 06:29 07:16 Temperature 98.7 F Pulse Rate 80 88 94 Respiratory 18 Rate Blood Pressure 99/69 O2 Sat by Pulse 95 Oximetry EKG Findings - EKG Comments: EKG Findings:: Normal sinus rhythm, ventricular rate 86, IL interval 130, QTC 469 <En Bob P - Last Filed: 08/20/18 01:59> Medical Decision Making - Lab Data Result diagrams: 08/19/18 04:07 08/19/18 04:07 <Yadi Patino - Last Filed: 08/19/18 07:06> - Lab Data Result diagrams: 08/19/18 04:07 08/19/18 04:07 <En Bob - Last Filed: 08/20/18 01:59> - Medical Decision Making Vision care was signed out to me by En Bob at shift change. Presents a 43-year-old female who was recently admitted for GI bleed presenting with nonproductive cough for mildly tachycardic. Symptoms resolved with breathing treatments. 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 Chest x-ray was unremarkable. Patient does have a history of protein S deficiency however her d-dimer was negative I discussed this with her. I suspect that the patient's symptoms are secondary to a viral upper respiratory infection. Patient received a second breathing treatment which improved her symptoms. At this time I will plan to discharge the patient home on albuterol, steroids and will her scribe cough syrup with codeine for cough relief. Addition patient expresses concern that she has developed thrush from using her mother's inhaler. We'll prescribe nystatin rinse. (Yadi Patino) - Lab Data Lab Results 08/19/18 08/19/18 08/19/18 Range/Units 04:07 04:07 04:07 WBC 10.3 (3.8-10.6) k/uL RBC 3.77 L (3.80-5.40) m/uL Hgb 11.4 (11.4-16.0) gm/dL Hct 37.1 (34.0-46.0) % MCV 98.4 (80.0-100.0) fL MCH 30.3 (25.0-35.0) pg MCHC 30.7 L (31.0-37.0) g/dL RDW 13.0 (11.5-15.5) % Plt Count 143 L (150-450) k/uL Neutrophils % 84 % Lymphocytes % 8 % Monocytes % 5 % Eosinophils % 1 % Basophils % 0 % Neutrophils # 8.6 H (1.3-7.7) k/uL Lymphocytes # 0.9 L (1.0-4.8) k/uL Monocytes # 0.5 (0-1.0) k/uL Eosinophils # 0.1 (0-0.7) k/uL Basophils # 0.0 (0-0.2) k/uL Hypochromasia Slight PT 10.3 (9.0-12.0) sec INR 1.0 (<1.2) APTT 23.9 (22.0-30.0) sec D-Dimer (<0.60) mg/L FEU Sodium 140 (137-145) mmol/L Potassium 4.0 (3.5-5.1) mmol/L Chloride 109 H (98-107) mmol/L Carbon Dioxide 28 (22-30) mmol/L Anion Gap 3 mmol/L BUN 9 (7-17) mg/dL Creatinine 0.81 (0.52-1.04) mg/dL Est GFR (CKD-EPI)AfAm >90 (>60 ml/min/1.73 sqM) Est GFR (CKD-EPI)NonAf >90 (>60 ml/min/1.73 sqM) Glucose 101 H (74-99) mg/dL Plasma Lactic Acid Richie (0.7-2.0) mmol/L Calcium 8.4 (8.4-10.2) mg/dL Total Bilirubin 0.3 (0.2-1.3) mg/dL AST 38 H (14-36) U/L ALT 111 H (9-52) U/L Alkaline Phosphatase 98 (38-126) U/L Troponin I (0.000-0.034) ng/mL Total Protein 6.1 L (6.3-8.2) g/dL Albumin 3.2 L (3.5-5.0) g/dL Urine Color Urine Appearance (Clear) Urine pH (5.0-8.0) Ur Specific [place] (1.001-1.035) Urine Protein (Negative) Urine Glucose (UA) (Negative) Urine Ketones (Negative) Urine Blood (Negative) Urine Nitrite (Negative) Urine Bilirubin (Negative) Urine Urobilinogen (<2.0) mg/dL Ur Leukocyte Esterase (Negative) Influenza Type A RNA (Not Detectd) Influenza Type B (PCR) (Not Detectd) 08/19/18 08/19/18 08/19/18 Range/Units 04:07 04:07 04:07 WBC (3.8-10.6) k/uL RBC (3.80-5.40) m/uL Hgb (11.4-16.0) gm/dL Hct (34.0-46.0) % MCV (80.0-100.0) fL MCH (25.0-35.0) pg MCHC (31.0-37.0) g/dL RDW (11.5-15.5) % Plt Count (150-450) k/uL Neutrophils % % Lymphocytes % % Monocytes % % Eosinophils % % Basophils % % Neutrophils # (1.3-7.7) k/uL Lymphocytes # (1.0-4.8) k/uL Monocytes # (0-1.0) k/uL Eosinophils # (0-0.7) k/uL Basophils # (0-0.2) k/uL Hypochromasia PT (9.0-12.0) sec INR (<1.2) APTT (22.0-30.0) sec D-Dimer 0.58 (<0.60) mg/L FEU Sodium (137-145) mmol/L Potassium (3.5-5.1) mmol/L Chloride (98-107) mmol/L Carbon Dioxide (22-30) mmol/L Anion Gap mmol/L BUN (7-17) mg/dL Creatinine (0.52-1.04) mg/dL Est GFR (CKD-EPI)AfAm (>60 ml/min/1.73 sqM) Est GFR (CKD-EPI)NonAf (>60 ml/min/1.73 sqM) Glucose (74-99) mg/dL Plasma Lactic Acid Richie 1.6 (0.7-2.0) mmol/L Calcium (8.4-10.2) mg/dL Total Bilirubin (0.2-1.3) mg/dL AST (14-36) U/L ALT (9-52) U/L Alkaline Phosphatase (38-126) U/L Troponin I <0.012 (0.000-0.034) ng/mL Total Protein (6.3-8.2) g/dL Albumin (3.5-5.0) g/dL Urine Color Urine Appearance (Clear) Urine pH (5.0-8.0) Ur Specific [place] (1.001-1.035) Urine Protein (Negative) Urine Glucose (UA) (Negative) Urine Ketones (Negative) Urine Blood (Negative) Urine Nitrite (Negative) Urine Bilirubin (Negative) Urine Urobilinogen (<2.0) mg/dL Ur Leukocyte Esterase (Negative) Influenza Type A RNA (Not Detectd) Influenza Type B (PCR) (Not Detectd) 08/19/18 08/19/18 Range/Units 04:36 04:36 WBC (3.8-10.6) k/uL RBC (3.80-5.40) m/uL Hgb (11.4-16.0) gm/dL Hct (34.0-46.0) % MCV (80.0-100.0) fL MCH (25.0-35.0) pg MCHC (31.0-37.0) g/dL RDW (11.5-15.5) % Plt Count (150-450) k/uL Neutrophils % % Lymphocytes % % Monocytes % % Eosinophils % % Basophils % % Neutrophils # (1.3-7.7) k/uL Lymphocytes # (1.0-4.8) k/uL Monocytes # (0-1.0) k/uL Eosinophils # (0-0.7) k/uL Basophils # (0-0.2) k/uL Hypochromasia PT (9.0-12.0) sec INR (<1.2) APTT (22.0-30.0) sec D-Dimer (<0.60) mg/L FEU Sodium (137-145) mmol/L Potassium (3.5-5.1) mmol/L Chloride (98-107) mmol/L Carbon Dioxide (22-30) mmol/L Anion Gap mmol/L BUN (7-17) mg/dL Creatinine (0.52-1.04) mg/dL Est GFR (CKD-EPI)AfAm (>60 ml/min/1.73 sqM) Est GFR (CKD-EPI)NonAf (>60 ml/min/1.73 sqM) Glucose (74-99) mg/dL Plasma Lactic Acid Richie (0.7-2.0) mmol/L Calcium (8.4-10.2) mg/dL Total Bilirubin (0.2-1.3) mg/dL AST (14-36) U/L ALT (9-52) U/L Alkaline Phosphatase (38-126) U/L Troponin I (0.000-0.034) ng/mL Total Protein (6.3-8.2) g/dL Albumin (3.5-5.0) g/dL Urine Color Colorless Urine Appearance Clear (Clear) Urine pH 6.0 (5.0-8.0) Ur Specific [place] 1.001 (1.001-1.035) Urine Protein Negative (Negative) Urine Glucose (UA) Negative (Negative) Urine Ketones Negative (Negative) Urine Blood Negative (Negative) Urine Nitrite Negative (Negative) Urine Bilirubin Negative (Negative) Urine Urobilinogen <2.0 (<2.0) mg/dL Ur Leukocyte Esterase Negative (Negative) Influenza Type A RNA Not Detected (Not Detectd) Influenza Type B (PCR) Not Detected (Not Detectd) Disposition <Yadi Patino P - Last Filed: 08/19/18 07:06> <En Bob P - Last Filed: 08/20/18 01:59> Clinical Impression: Cough Disposition: HOME SELF-CARE Instructions (If sedation given, give patient instructions): Upper Respiratory Infection (ED) Prescriptions: Albuterol Inhaler [Ventolin Hfa Inhaler] 1 - 2 puff INHALATION RT-Q6H PRN #1 inhaler PRN Reason: Wheezing Codeine Phosphate/Guaifenesin [Virtussin AC Liquid] 5 ml PO Q4H PRN 3 Days #90 ml PRN Reason: Cough Nystatin 100,000 Unit/ml Susp [Mycostatin Oral Susp] 5 ml PO QID #1 bottle predniSONE [Deltasone] 40 mg PO DAILY 5 Days #10 tablet Referrals: Presley Ley MD [Primary Care Provider] - 1-2 days
[2018-08-19] MEDS ORDERED: ACETAMINOPHEN TAB 500 MG TAB PO STA (02:59)
[2018-08-19 04:37] LABS: ALT 111 U/L (9-52); AST 38 U/L (14-36); Albumin 3.2 g/dL (3.5-5.0); Alkaline Phosphatase 98 U/L (38-126); Anion Gap 3 mmol/L; Blood Urea Nitrogen 9 mg/dL (7-17); Calcium 8.4 mg/dL (8.4-10.2); Carbon Dioxide 28 mmol/L (22-30); Chloride 109 mmol/L (98-107); Glucose 101 mg/dL (74-99); Sodium 140 mmol/L (137-145); Total Bilirubin 0.3 mg/dL (0.2-1.3); Total Protein 6.1 g/dL (6.3-8.2)
[2018-08-19 04:42] LABS: Partial Thromboplastin Time 23.9 sec (22.0-30.0); Prothrombin Time 10.3 sec (9.0-12.0)
[2018-08-19 04:45] LABS: Basophils % (A) 0 %; Eosinophils # (A) 0.1 k/uL (0-0.7); Eosinophils % (A) 1 %; HCT 37.1 % (34.0-46.0); HGB 11.4 gm/dL (11.4-16.0); Hypochromasia Slight; Lymphocytes # (A) 0.9 k/uL (1.0-4.8); Lymphocytes % (A) 8 %; MCH 30.3 pg (25.0-35.0); MCHC 30.7 g/dL (31.0-37.0); MCV 98.4 fL (80.0-100.0); Mean Platelet Volume 7.8; Monocytes # (A) 0.5 k/uL (0-1.0); Monocytes % (A) 5 %; Neutrophils # (A) 8.6 k/uL (1.3-7.7); Neutrophils % (A) 84 %; Platelet Count 143 k/uL (150-450); RBC 3.77 m/uL (3.80-5.40); WBC 10.3 k/uL (3.8-10.6)
[2018-08-19 04:48] LABS: Appearance,Urine Clear (Clear); Bilirubin,Urine Negative (Negative); Blood,Urine Negative (Negative); Color,Urine Colorless; Glucose,Urine (UA) Negative (Negative); Ketones,Urine Negative (Negative); Leukocyte Esterase,Urine Negative (Negative); Nitrite,Urine Negative (Negative); Protein,Urine Negative (Negative); Specific Gravity,Urine 1.001 (1.001-1.035); Urobilinogen,Urine <2.0 mg/dL (<2.0)
--- NOTE | 2018-08-19 04:50 | XR ---
EXAM: XR Chest, 2 Views CLINICAL HISTORY: ITS.REASON XR Reason: Pain TECHNIQUE: Frontal and lateral views of the chest. COMPARISON: 03/16/16 chest x-ray IMPRESSION: Normal heart size. No consolidation or pleural effusion.
[2018-08-19] MEDS ORDERED: HYDROmorphone 1 MG/ML 1 ML SYRINGE IM STA (05:41)
[2018-08-19 05:42] VITALS: RESP 18
[2018-08-19] MEDS ORDERED: predniSONE 20 MG TAB PO STA (07:00)
[2018-08-19 07:18] VITALS: BP 99/69; PULSE 94; TEMP 98.7
== END 2018-08-19 07:16 | disposition home or self-care (01) ==
LOC: EC 01:56
DX: R05 Cough (principal); R06.02 Shortness of breath; M79.7 Fibromyalgia; K21.9 Gastro-esophageal reflux disease without esophagitis; I47.1 Supraventricular tachycardia; F41.9 Anxiety disorder, unspecified; F32.9 Major depressive disorder, single episode, unspecified; Z95.818 Presence of other cardiac implants and grafts; Z79.899 Other long term (current) drug therapy; Z88.8 Allergy status to other drugs, medicaments and biological substances; Z88.5 Allergy status to narcotic agent; Z53.8 Procedure and treatment not carried out for other reasons
CPT/HCPCS: 36415; 94640 ×2; 85379; 80053; 83605; 84484; 85025; 85610; 85730; 81003; 87040; 87502; 71046; 99285; 96372; J1170; J7512

== ENCOUNTER 2022-03-01 07:12 | Day surgery (SDC) | payer OTHER ==
[2022-02-28 11:38] VITALS: BMI 27.4
[~2022-03-01 07:12] MED LIST changes: +LIDOCAINE 1% (10MG/ML) FOR IV START INTRADERMA PRN; -LIDOCAINE 1% 20 ML VIAL (10MG/ML) FOR IV START INTRADERMA PRN; -MIDAZOLAM 2 MG/2 ML VIAL IV PRN
[2022-03-01 07:53] VITALS: TEMP 97.3
[2022-03-01] MEDS ORDERED: LIDOCAINE 2% INJ 20 MG/ML (2 ML VIAL) ONE (08:43)
[2022-03-01] MEDS ORDERED: PROPOFOL 10 MG/ML 20 ML VIAL IV ONE (08:43)
--- NOTE | 2022-03-01 08:55 | P.PCN ---
Date of Procedure: 03/01/22 Procedure(s) Performed: BRIEF HISTORY: Patient is a 46-year-old, pleasant, white female scheduled for an upper endoscopy as a part of evaluation long-standing history of GERD. She has been on omeprazole 40 mg daily for several years. She is status post Mahesh fundoplication in 2014. Lately has been having severe epigastric pain associated with intermittent nausea vomiting occasional dysphagia.. PROCEDURE PERFORMED: Esophagogastroduodenoscopy with biopsy. PREOPERATIVE DIAGNOSIS: Long-standing history of GERD with refractory symptoms lately. IV sedation per anesthesia. PROCEDURE: After informed consent was obtained, the patient was brought into the endoscopy unit. IV sedation was administered by Anesthesia under continuous monitoring. Initially the Olympus GIF-140 video endoscope was inserted into the mouth. Esophagus intubated without any difficulty. It was gradually advanced into the stomach and duodenum and carefully examined. The bulb and the second part of the duodenum appeared normal. The scope at this time was withdrawn to the stomach, adequately insufflated with air, and upon careful examination, mucosa of the antrum, had patchy areas of erythema and biopsies were done from this area. The body, cardia and the fundus appeared normal. On retroflexion the Mahesh fundoplication appeared intact. The scope was then withdrawn into the esophagus. The GE junction was located at 39 cm from the incisors. The esophagus appeared normal. There were no erosions or ulcerations seen, biopsies were done from the distal esophagus and the patient tolerated the procedure well. IMPRESSION: 1. Normal-appearing esophagus with no evidence of esophagitis or esophageal stricture. 2. Mild antral gastritis. RECOMMENDATIONS: The findings of this examination were discussed with the patient as well as a family. She was advised to increase omeprazole to 40 mg twice daily for 3 months and follow antireflux measures. If she still remains symptomatic despite aggressive acid suppressive therapy she was advised to follow office in 3 months..
[2022-03-01 09:42] VITALS: BP 102/67; PULSE 60; RESP 17
== END 2022-03-01 09:42 | disposition home or self-care (01) ==
LOC: ORWHC2ENDO 07:12
PROVIDERS: ATTEND Internal Medicine Gastroenterology
DX: K29.50 Unspecified chronic gastritis without bleeding (principal); K21.00 Gastro-esophageal reflux disease with esophagitis, without bleeding; I10 Essential (primary) hypertension; F32.9 Major depressive disorder, single episode, unspecified; K21.9 Gastro-esophageal reflux disease without esophagitis; R10.13 Epigastric pain; R11.2 Nausea with vomiting, unspecified; R13.10 Dysphagia, unspecified; Z88.8 Allergy status to other drugs, medicaments and biological substances; Z95.4 Presence of other heart-valve replacement
CPT/HCPCS: 88305; 43239; J2704; J2001

== ENCOUNTER 2024-12-28 23:17 | Emergency (ER) | payer OTHER ==
[2024-12-28 23:35] VITALS: BP 110/59; PULSE 73; RESP 18; TEMP 98
--- NOTE | 2024-12-28 23:52 | ED ---
Female Urogenital HPI - General Chief complaint: Vaginal Bleeding Stated complaint: vaginal bleeding rectal bleeding Time Seen by Provider: 12/28/24 23:36 Source: patient, RN notes reviewed, old records reviewed Mode of arrival: ambulatory Limitations: no limitations - History of Present Illness Initial comments: This is a 49-year-old female to ER for evaluation of vaginal bleeding, postmenopausal bleeding vaginal bleeding intercourse. Patient is on Coumadin, for sexual activity in 14 years. Severe pain last night no significant pain currently mild bleeding noticed no dysuria MD Complaint: vaginal bleeding -: days(s) Location: perineum, suprapubic Severity: moderate Quality: aching Consistency: intermittent Improves with: none Worsens with: none Patient : No Associated Symptoms: vaginal bleeding - Related Data Home Medications Medication Instructions Recorded Confirmed clonazePAM [KlonoPIN] 2 mg PO TID 09/03/14 03/01/22 Metoprolol Tartrate 12.5 mg PO BID 03/16/16 03/01/22 PARoxetine HCL [Paxil] 60 mg PO QAM 03/16/16 03/01/22 traZODone HCL 450 mg PO HS 03/25/17 03/01/22 Lurasidone [Latuda] 100 mg PO 1800 08/15/18 03/01/22 Omeprazole 40 mg PO DAILY 08/15/18 03/01/22 Aspirin 81 mg PO DAILY 07/12/21 03/01/22 Cholecalciferol [Vitamin D3 (25 50 mcg PO DAILY 07/12/21 03/01/22 Mcg = 1000 Iu)] hydrOXYzine HCL [Atarax] 25 mg PO TID 07/12/21 03/01/22 Cyclobenzaprine [Flexeril] 5 mg PO BID 02/28/22 03/01/22 Docusate Sodium [Dok] 250 mg PO BID 02/28/22 03/01/22 Spironolactone [Aldactone] 25 mg PO QAM 02/28/22 03/01/22 Allergies Allergy/AdvReac Type Severity Reaction Status Date / Time amoxicillin Allergy Rash/Hives Verified 12/28/24 23:35 dronabinol [From Marinol] AdvReac behavior Verified 12/28/24 23:35 changes glycopyrrolate [From Robinul] AdvReac PARANOIA Verified 12/28/24 23:35 ketorolac [From Toradol] AdvReac kidney Verified 12/28/24 23:35 injury metoclopramide HCl AdvReac PARANOIA Verified 12/28/24 23:35 [From Reglan] morphine AdvReac Chest Pain Verified 12/28/24 23:35 prochlorperazine edisylate AdvReac Nausea & Verified 12/28/24 23:35 [From Compazine] Vomiting prochlorperazine maleate AdvReac Nausea & Verified 12/28/24 23:35 [From Compazine] Vomiting tramadol AdvReac Nausea & Verified 12/28/24 23:35 Vomiting Review of Systems ROS Statement: Those systems with pertinent positive or pertinent negative responses have been documented in the HPI. ROS Other: All systems not noted in ROS Statement are negative. Past Medical History Past Medical History: Fibromyalgia, GERD/Reflux, Osteoarthritis (OA), Supraventricular Tachycardia (SVT), Syncope Additional Past Medical History / Comment(s): has SOB when lying flat for exteded periods,Protein S deficiency"blood is thicker and develops clots easier), ischemic colitis, "blood clot" lining of colon, IBS, peptic ulcer, gastritis, anorexia nervosa, hypoglycemia, bilateral foot/ankle edema, bulging discs low back and cervical with chronic pain, kidney stones. History of Any Multi-Drug Resistant Organisms: None Reported Past Surgical History: Cardiac Valve Replacement, Cholecystectomy, Heart Catheterization, Hysterectomy, Pacemaker Additional Past Surgical History / Comment(s): Tricuspid replaced( at [facility]),Mitral Valve replace (2018), EGDs, colonoscopy with part of lining removed, ureteral stents d/t stones-since removed, rc fundloplasty, cardiac cath 1998-normal, pain procedures low back and cervical Past Anesthesia/Blood Transfusion Reactions: Motion Sickness, Postoperative Nausea & Vomiting (PONV) Additional Past Anesthesia/Blood Transfusion Reaction / Comment(s): 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-SEE DIRECTIVE IN CHART,woke up while being intubated for tricuspid valve replacement Type of Cardiac Device: Permanent Pacemaker Device Placement Date:: Future [employer] Past Psychological History: Anxiety, Bipolar, Depression Smoking Status: Never smoker - Past Family History Father Family Medical History: Hyperlipidemia Additional Family Medical History / Comment(s): Mitral valve repair Mother Additional Family Medical History / Comment(s): "thick skin lupus" General Exam Limitations: no limitations General appearance: alert, in no apparent distress Head exam: Present: atraumatic, normocephalic, normal inspection Eye exam: Present: normal appearance, PERRL, EOMI. Absent: scleral icterus, conjunctival injection, periorbital swelling ENT exam: Present: normal exam, mucous membranes moist Neck exam: Present: normal inspection. Absent: tenderness, meningismus, lymphadenopathy Respiratory exam: Present: normal lung sounds bilaterally. Absent: respiratory distress, wheezes, rales, rhonchi, stridor Cardiovascular Exam: Present: regular rate, normal rhythm, normal heart sounds. Absent: systolic murmur, diastolic murmur, rubs, gallop, clicks GI/Abdominal exam: Present: soft, normal bowel sounds. Absent: distended, tenderness, guarding, rebound, rigid Extremities exam: Present: normal inspection, full ROM, normal capillary refill. Absent: tenderness, pedal edema, joint swelling, calf tenderness Back exam: Present: normal inspection Neurological exam: Present: alert, oriented X3, CN II-XII intact Psychiatric exam: Present: normal affect, normal mood Skin exam: Present: warm, dry, intact, normal color. Absent: rash Course Vital Signs 12/28/24 23:23 Temperature 98 F Pulse Rate 73 Respiratory 18 Rate Blood Pressure 110/59 O2 Sat by Pulse 97 Oximetry - Reevaluation(s) Reevaluation #1: 12/28/24 23:50 Medical records reviewed Reevaluation #2: 12/28/24 23:50 No significant vaginal bleeding noted here in the ER Reevaluation #3: 12/28/24 23:50 Patient informed of results questions answered Reevaluation #4: Was pt. sent in by a medical professional or institution (, PA, [facility], urgent care, hospital, or [facility]...) When possible be specific @ -no Did you speak to anyone other than the patient for history (EMS, parent, family, police, friend...)? What history was obtained from this source @ -no Did you review nursing and triage notes (agree or disagree)? Why? @ -agree Are old charts reviewed (outside hosp., previous admission, EMS record, old EKG, old radiological studies, urgent care reports/EKG's, [facility] records)? Report findings @ -yes Differential Diagnosis (chest pain, altered mental status, abdominal pain women, abdominal pain men, vaginal bleeding, weakness, fever, dyspnea, syncope, headache, dizziness, GI bleed, back pain, seizure, CVA, palpatations, mental health, musculoskeletal)? @ -prior EKG interpreted by me (3pts min.). @ -yes X-rays interpreted by me (1pt min.). @ -yes negative for acute disease CT interpreted by me (1pt min.). @ -no U/S interpreted by me (1pt. min.). @ -no What testing was considered but not performed or refused? (CT, X-rays, U/S, labs)? Why? @ -none What meds were considered but not given or refused? Why? @ -none Did you discuss the management of the patient with other professionals (professionals i.e. , PA, [facility], lab, RT, psych nurse, social services coordinator, community development officer, teacher, v/stol landing signal officer, pillowcase maker)? Give summary @ -no Was smoking cessation discussed for >3mins.? @ -no Was critical care preformed (if so, how long)? @ -no Were there social determinants of health that impacted care today? How? (Homelessness, low income, unemployed, alcoholism, drug addiction, transport ation, low edu. Level, literacy, decrease access to med. care, alf, rehab)? @ -none Was there de-escalation of care discussed even if they declined (Discuss DNR or withdrawal of care, Hospice)? DNR status @ -no What co-morbidities impacted this encounter? (DM, HTN, Smoking, COPD, CAD, Cancer, CVA, ARF, Chemo, Hep., AIDS, mental health diagnosis, sleep apnea, morbid obesity)? @ -none Was patient admitted / discharged? Hospital course, mention meds given and route, prescriptions, significant lab abnormalities, going to OR and other pertinent info. @ - Undiagnosed new problem with uncertain prognosis? @ -no Drug Therapy requiring intensive monitoring for toxicity (Heparin, Nitro, Insulin, Cardizem)? @ -no Were any procedures done? @ -no Diagnosis/symptom? @ - Acute, or Chronic, or Acute on Chronic? @ -Acute Uncomplicated (without systemic symptoms) or Complicated (systemic symptoms)? @ -Complicated Side effects of treatment? @ -no Exacerbation, Progression, or Severe Exacerbation? @ -exacerbation Poses a threat to life or bodily function? How? (Chest pain, [place], [place], pneumonia, PE, COPD, DKA, ARF, appy, cholecystitis, CVA, Diverticulitis, Homicidal, Suicidal, threat to staff... and all critical care pts) @ -yes Reevaluation #5: Differential Abdominal Pain Women: Appendicitis, Cholecystitis, diverticulosis, ischemic bowel, pancreatitis, hepat itis, UTI, gastroenteritis, AAA, incarcerated hernia, bowel obstruction, constipation, inflammatory bowel, hepatitis, peptic ulcer disease, splenic infarction, perforated viscus, vulvitis, ovarian torsion, PID, kidney stone, placenta abruption, this is not meant to be an all-inclusive list Medical Decision Making - Medical Decision Making 49 female with vaginal bleeding after sexual activity. No significant vaginal bleeding noted here in the ER noticed here in the ER, patient is on Coumadin no symptoms of lightheadedness dizziness or weakness but no abdominal pain. Patient does have significant bruising but no significant laceration Disposition Clinical Impression: Dysfunctional uterine bleeding, Dyspareunia Disposition: HOME SELF-CARE Condition: Fair Instructions (If sedation given, give patient instructions): Dysmenorrhea (ED), Dyspareunia in Women (DC) Is patient prescribed a controlled substance at d/c from ED?: No Referrals: Baldemar Shafer MD [Primary Care Provider] - 1-2 days Racquel Brown MD [STAFF PHYSICIAN] - 1-2 days Time of Disposition: 23:55
[2024-12-29 00:09] LABS: Amorphous Sediment,Urine Rare /hpf; Bilirubin,Urine Negative (Negative); Blood,Urine Moderate (Negative); Color,Urine Colorless; Glucose,Urine (UA) Negative (Negative); Hyaline Casts,Urine 17 /lpf (0-2); Ketones,Urine Negative (Negative); Leukocyte Esterase,Urine Moderate (Negative); Mucus,Urine Rare /hpf; Nitrite,Urine Negative (Negative); PH, Urine 6.0 (5.0-8.0); Protein,Urine Negative (Negative); RBC,Urine 22 /hpf (0-5); Specific Gravity,Urine 1.013 (1.001-1.035); Squamous Epithelial Cell,Urine 3 /hpf (0-4); Urobilinogen,Urine <2.0 mg/dL (<2.0); WBC,Urine 11 /hpf (0-5)
== END 2024-12-29 00:08 | disposition home or self-care (01) ==
LOC: EC 23:17
DX: N93.8 Other specified abnormal uterine and vaginal bleeding (principal); Z88.0 Allergy status to penicillin; Z88.5 Allergy status to narcotic agent; Z88.8 Allergy status to other drugs, medicaments and biological substances; Z88.6 Allergy status to analgesic agent
CPT/HCPCS: 81001; 81025; 99284